=== PATIENT | male | born 1940 | race Caucasian/White ===

== ENCOUNTER 2020-07-31 08:50 | Outpatient (REF) | payer MEDICARE, SELFPAY | END 2020-07-31 08:51 | disposition home or self-care (01) | LOC: HO.BBR 08:50 | PROVIDERS: Visit Provider Internal Medicine | DX: Z13.89 Encounter for screening for other disorder (principal) ==

== ENCOUNTER 2020-07-31 09:20 | Outpatient (REF) | payer SELFPAY ==
[2020-07-31 10:02] LABS: Cholesterol 101 mg/dL
[2020-07-31 12:07] LABS: SARS COV2 IgG Negative (Negative)
== END 2020-07-31 09:21 | disposition home or self-care (01) ==
LOC: HO.LNC 09:20
PROVIDERS: Visit Provider Pathology Anatomic Pathology & Clinical Pathology
DX: Z20.828 Contact with and (suspected) exposure to other viral communicable diseases (principal)
CPT/HCPCS: 82465; 86769

== ENCOUNTER 2020-11-14 09:52 | Outpatient (REF) | payer MEDICARE, SELFPAY | END 2020-11-14 09:53 | disposition home or self-care (01) | LOC: HO.BBR 09:52 | PROVIDERS: Visit Provider Internal Medicine | DX: Z13.89 Encounter for screening for other disorder (principal) ==

== ENCOUNTER → 2020-12-11 08:02 | Outpatient (BNVA) | payer BC, SELFPAY | PROVIDERS: PCP Hospitalist; Visit Provider Nurse Practitioner Family ==

== ENCOUNTER → 2021-01-07 10:29 | Outpatient (BNVA) | payer BC, SELFPAY | PROVIDERS: PCP Hospitalist; Visit Provider Surgery Vascular Surgery ==

== ENCOUNTER 2021-01-16 10:21 | Outpatient (REF) | payer BC, SELFPAY ==
--- NOTE | ~2021-01-16 | US_ITS ---
EXAMINATION: RIGHT and LEFT LOWER EXTREMITY VENOUS ULTRASOUND (Reflux Exam) CLINICAL INDICATION: leg pain and varicose veins. COMPARISON: None. TECHNIQUE: Color flow triplex imaging and compression Doppler was performed to evaluate both the deep and the superficial systems bilaterally. To evaluate the superficial system, the examination was performed in the upright position. Color-flow Doppler ultrasound and compression ultrasound were utilized. In addition, maneuvers were utilized to demonstrate reflux. FINDINGS: 1. DEEP VENOUS ULTRASOUND OF THE RIGHT LOWER EXTREMITY: Respiratory variation, normal compression and augmented flow are noted in the right common femoral vein as well as the right popliteal vein and there is no evidence of deep venous thrombosis at these locations. There is no evidence of reflux in the deep system in either the common femoral vein or the popliteal vein. There is no evidence of a Mckeon's cyst. 2. SUPERFICIAL ULTRASOUND WITH DOPPLER OF RIGHT LOWER EXTREMITY: The right great saphenous vein at the saphenofemoral junction measures 7 mm, at the mid thigh 3 mm, vqqks-gpf-alzn 3 mm, kzrur-naf-zhqo 2 mm, at mid calf 3 mm and at the ankle measures 2 mm. There is a 2.8 seconds reflux at the knee and 2.1 seconds reflux below the knee. There is an accessory lateral greater saphenous vein that measures 3 mm and does not demonstrate reflux. The right small saphenous vein measures 2-3 mm and shows no reflux. There is a autobody technician in the mid thigh that measures 1 mm and does not demonstrate reflux. 3. DEEP VENOUS ULTRASOUND OF THE LEFT LOWER EXTREMITY: Respiratory variation, normal compression and augmented flow are noted in the left common femoral vein as well as the left popliteal vein and there is no evidence of deep venous thrombosis at these locations. There is a 1.6 seconds deep venous reflux in the mid femoral vein. There is no evidence of reflux in the deep system in either the common femoral vein or the popliteal vein. . There is no evidence of a Mckeon's cyst. 4. SUPERFICIAL ULTRASOUND WITH DOPPLER OF LEFT LOWER EXTREMITY: Left great saphenous vein at the saphenofemoral junction measures 8 mm, at the mid thigh 5 mm, vcdyv-wwm-zkfs 5 mm, halhc-kje-hyjf 4 mm, at mid calf 2 mm and at the ankle measures 3 mm. There is is diffuse greater saphenous vein reflux measuring maximum 3.4 seconds in the mid calf. There is a accessory left greater saphenous vein that measures 5 mm and does not demonstrate reflux. The left small saphenous vein measures 3-4 mm and shows no reflux. There are perforators in the calf that measure 2 and 4 mm. There is reflux measuring 2.6 seconds in the larger autobody technician. There are varicosities at the saphenofemoral junction with a 0.6 seconds reflux, proximal thigh and proximal calf with 3.1 seconds reflux. US/US venous duplex LE BI IMPRESSION: 1. No evidence of reflux in the common femoral veins or popliteal veins bilaterally. Left mid femoral vein deep venous reflux. No other deep venous reflux seen. 2. Bilateral greater saphenous vein reflux, left greater than right.
== END 2021-01-16 10:22 | disposition home or self-care (01) ==
LOC: HO.US 10:21
PROVIDERS: Visit Provider Surgery Vascular Surgery
DX: I83.12 Varicose veins of left lower extremity with inflammation (principal); I83.893 Varicose veins of bilateral lower extremities with other complications
CPT/HCPCS: 93970

== ENCOUNTER → 2021-01-23 10:06 | Outpatient (BNVA) | payer BC, SELFPAY | PROVIDERS: PCP Hospitalist; Visit Provider Surgery Vascular Surgery ==

== ENCOUNTER 2021-01-28 06:19 | Outpatient (REF) | payer BC, SELFPAY ==
--- NOTE | ~2021-01-28 | FL_ITS ---
EXAMINATION: XR FLUOROSCOPY WITH IMAGES CLINICAL INFORMATION: M47.816 - Spondylosis without myelopathy or radiculopathy COMPARISON: None. TECHNIQUE: Fluoroscopy performed by Marichuy Masterson NP. Fluoroscopy time: 1.0 minutes DAP: 12.3 Gycm2 Images: 2 FINDINGS: There are needles/electrodes overlying the outer aspect bilateral L3, L4, and L5 neural foramen. There are multilevel vertebral body spurring. FL/FL guidance in treatment room IMPRESSION: Fluoroscopy for pain management procedure.
== END 2021-01-28 06:20 | disposition home or self-care (01) ==
LOC: HO.RADIR 06:19
PROVIDERS: Visit Provider Anesthesiology
DX: M47.816 Spondylosis without myelopathy or radiculopathy, lumbar region (principal)
CPT/HCPCS: 64635; J3300

== ENCOUNTER → 2021-02-14 08:26 | Outpatient (BNVA) | payer BC, SELFPAY | PROVIDERS: PCP Hospitalist; Visit Provider Surgery Vascular Surgery | DX: I83.12 Varicose veins of left lower extremity with inflammation (principal) | CPT/HCPCS: 36482 ==

== ENCOUNTER 2021-02-17 08:48 | Outpatient (REF) | payer MEDICARE, SELFPAY ==
--- NOTE | ~2021-02-17 | US_ITS ---
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 Spectral analysis with color-flow imaging is performed. FINDINGS: There is normal venous compression and respiratory variation and augmented flow. The visualized common femoral vein, superficial femoral vein, profunda femoral vein, popliteal vein, and the trifurcation region shows no evidence of deep venous thrombosis. The left greater saphenous vein is closed. This extends 2.6 cm from the saphenofemoral junction. There is no Mckeon's cyst. US/US venous duplex LE LT IMPRESSION: No DVT demonstrated in the left lower extremity.
== END 2021-02-17 08:49 | disposition home or self-care (01) ==
LOC: HO.US 08:48
PROVIDERS: Visit Provider Surgery Vascular Surgery
DX: M79.605 Pain in left leg (principal)
CPT/HCPCS: 93971

== ENCOUNTER 2021-02-18 10:50 | Outpatient (REF) | payer BC, SELFPAY | END 2021-02-18 10:51 | disposition home or self-care (01) | LOC: HO.BBR 10:50 | PROVIDERS: Visit Provider Internal Medicine | DX: Z13.89 Encounter for screening for other disorder (principal) ==

== ENCOUNTER → 2021-03-04 12:16 | Outpatient (BNVA) | payer MEDICARE, SELFPAY | PROVIDERS: PCP Hospitalist; Visit Provider Surgery Vascular Surgery | DX: I83.12 Varicose veins of left lower extremity with inflammation (principal) | CPT/HCPCS: 99212 ==

== ENCOUNTER → 2021-03-05 08:36 | Outpatient (BNVA) | payer MEDICARE, SELFPAY | PROVIDERS: PCP Hospitalist; Visit Provider Nurse Practitioner Family | DX: M47.816 Spondylosis without myelopathy or radiculopathy, lumbar region (principal) | CPT/HCPCS: 99212 ==

== ENCOUNTER 2021-03-17 11:50 | Outpatient (REF) | payer MEDICARE, SELFPAY | END 2021-03-17 11:51 | disposition home or self-care (01) | LOC: HO.BBR 11:50 | PROVIDERS: PCP Hospitalist; Visit Provider Internal Medicine | DX: Z13.89 Encounter for screening for other disorder (principal) ==

== ENCOUNTER 2021-06-10 06:23 | Outpatient (REF) | payer MEDICARE, SELFPAY ==
--- NOTE | ~2021-06-10 | FL_ITS ---
EXAMINATION: XR FLUOROSCOPY WITH IMAGES CLINICAL INFORMATION: Sacrococcygeal disorder. COMPARISON: None. TECHNIQUE: Fluoroscopy performed by Marichuy Masterson NP. Fluoroscopy time: 0.1 minutes DAP: 0.5 Gy-cm2 Images: 1 FINDINGS: Image demonstrates needle placement and contrast injection over the right sacroiliac joint. FL/FL guidance in treatment room IMPRESSION: Fluoroscopy guidance for pain management procedure.
== END 2021-06-10 06:24 | disposition home or self-care (01) ==
LOC: HO.RADIR 06:23
PROVIDERS: Visit Provider Anesthesiology
DX: M53.3 Sacrococcygeal disorders, not elsewhere classified (principal); M47.816 Spondylosis without myelopathy or radiculopathy, lumbar region; M46.1 Sacroiliitis, not elsewhere classified
CPT/HCPCS: 27096; J3300; Q9967

== ENCOUNTER 2021-06-17 09:54 | Outpatient (REF) | payer MEDICARE, SELFPAY | END 2021-06-17 09:55 | disposition home or self-care (01) | LOC: HO.BBR 09:54 | PROVIDERS: Visit Provider Internal Medicine | DX: Z13.89 Encounter for screening for other disorder (principal) ==

== ENCOUNTER → 2021-06-18 10:06 | Outpatient (BNVA) | payer MEDICARE, SELFPAY | PROVIDERS: PCP Hospitalist; Visit Provider Anesthesiology | DX: M47.816 Spondylosis without myelopathy or radiculopathy, lumbar region (principal); M46.1 Sacroiliitis, not elsewhere classified; M53.3 Sacrococcygeal disorders, not elsewhere classified; Z88.8 Allergy status to other drugs, medicaments and biological substances | CPT/HCPCS: 99212 ==

== ENCOUNTER 2021-07-22 06:37 | Outpatient (REF) | payer MEDICARE, SELFPAY ==
--- NOTE | ~2021-07-22 | FL_ITS ---
EXAMINATION: XR FLUOROSCOPY WITH IMAGES CLINICAL INFORMATION: M46.1 - Sacroiliitis, not elsewhere classified COMPARISON: Fluoroscopic spot view 06/10/2021 TECHNIQUE: Fluoroscopy performed by Dr. Warren Vazquez. Fluoroscopy time: 0.7 minutes DAP: 7.62 Gycm2 Images: 4 FINDINGS: There are 4 needle electrodes overlying the right sacral wing placed at various locations among the spot views. There are degenerative disc changes lumbosacral junction. FL/FL guidance in treatment room IMPRESSION: Fluoroscopy for pain management procedure.
== END 2021-07-22 06:38 | disposition home or self-care (01) ==
LOC: HO.RADIR 06:37
PROVIDERS: Visit Provider Anesthesiology
DX: M47.816 Spondylosis without myelopathy or radiculopathy, lumbar region (principal); M46.1 Sacroiliitis, not elsewhere classified; M53.3 Sacrococcygeal disorders, not elsewhere classified
CPT/HCPCS: 64425; J3300

== ENCOUNTER → 2021-08-25 09:37 | Outpatient (BNVA) | payer MEDICARE, SELFPAY | PROVIDERS: PCP Hospitalist; Visit Provider Anesthesiology | DX: M47.816 Spondylosis without myelopathy or radiculopathy, lumbar region (principal); M53.3 Sacrococcygeal disorders, not elsewhere classified; M46.1 Sacroiliitis, not elsewhere classified | CPT/HCPCS: 99212 ==

== ENCOUNTER 2021-11-06 10:05 | Outpatient (REF) | payer MEDICARE, SELFPAY | END 2021-11-06 10:06 | disposition home or self-care (01) | LOC: HO.BBR 10:05 | PROVIDERS: Visit Provider Internal Medicine | DX: Z13.89 Encounter for screening for other disorder (principal) ==

== ENCOUNTER 2022-02-13 09:46 | Outpatient (REF) | payer MEDICARE, SELFPAY | END 2022-02-13 09:47 | disposition home or self-care (01) | LOC: HO.BBR 09:46 | PROVIDERS: Visit Provider Internal Medicine | DX: Z13.89 Encounter for screening for other disorder (principal) ==

== ENCOUNTER → 2022-03-18 14:11 | Outpatient (BNVA) | payer MEDICARE, SELFPAY | PROVIDERS: PCP Hospitalist; Visit Provider Anesthesiology | DX: M47.816 Spondylosis without myelopathy or radiculopathy, lumbar region (principal); M53.3 Sacrococcygeal disorders, not elsewhere classified; M46.1 Sacroiliitis, not elsewhere classified | CPT/HCPCS: Q3014 ==

== ENCOUNTER 2022-05-18 10:04 | Outpatient (REF) | payer MEDICARE, SELFPAY | END 2022-05-18 10:05 | disposition home or self-care (01) | LOC: HO.BBR 10:04 | PROVIDERS: Visit Provider Internal Medicine | DX: Z13.89 Encounter for screening for other disorder (principal) ==

== ENCOUNTER 2022-05-26 06:26 | Day surgery (SDC) | payer MEDICARE, SELFPAY ==
--- NOTE | ~2022-05-26 | FL_ITS ---
EXAMINATION: XR FLUOROSCOPY WITH IMAGES CLINICAL INFORMATION: Medial branch RFA right lumbar. COMPARISON: Fluoroscopic spot images 07/22/2021 TECHNIQUE: Fluoroscopy performed by Dr. Warren Vazquez. Fluoroscopy time: 0.6 minutes. Cumulative Dose: 23 mGy. DAP: 6.27 Gy-cm2. Images: 3. FINDINGS: There are needles/electrodes overlying the outer right L2, L3, L4, and L5 neural foramen. There is multilevel vertebral body spurring. FL/FL guidance in OR IMPRESSION: Fluoroscopy for pain management procedures.
[2022-05-26 06:55] VITALS: BMI 28.5
[2022-05-26 07:10] VITALS: BP 162/61; PULSE 52; RESP 16; TEMP 36.4; O2SAT 96
--- NOTE | 2022-05-26 07:15 | MHC.SHP ---
Pre-Procedural Eval Section A Date of Service: 05/26/22 The patient is an INPATIENT: No Changes since office visit: Yes Patient answered all questions The History & Physical has been completed within 30 days and I have reviewed it.: No Section B Chief Complaint: spondylosis Details of Present Illness: as above Relevant Family History (Specify if Yes): No Relevant Social History: None Present Medications: None Medical History: No relevant PMH History of Previous Operations: No relevant previous surgery Allergies: Allergies Allergy/AdvReac Type Severity Reaction Status Date / Time Phenylpiperazine AdvReac Severe causes Verified 08/25/21 09:48 Antidepressant depression Tetracyclic Antidepressants AdvReac Severe causes Verified 08/25/21 09:48 depression Review of Systems Sugical H&P ROS: Negative: Constitution, Cardiovascular, Respiratory, Neurological, Psychiatric, Hem-Onc, Allergic/Immunologic, Gastrointestinal, Genitourinary, Musculoskeletal, Integumentary, Endocrine and Eyes/Ears/Nose/Throat Exam Surgical H&P Exam: Normal: HEENT, Normal: Heart, Normal: Lungs, Normal: Extremities, Normal: Abdomen, Normal: Skin and Normal: Neurological Plan Diagnosis/Plan: Unchanged I have reviewed the history and physical and performed a pertinent physical examination on my patient. No changes have occurred unless specified.
--- NOTE | 2022-05-26 07:17 | W.PM.OPN ---
Operative Note Operative Note Date of Service: 05/26/22 Narrative: Right sided RFA L2- L3- L4-DRL5 Informed consent was explained to the patient. All questions were explained and answered.? The patient was taken inside of the operating room where he was positioned prone on the operating table.? Time-out was performed delineating patient's name and date of , correct site, side, the nature of the procedure, patient's allergy, preoperative antibiotic if needed.? All operating room staff was participating in OR time-out procedure.? The patient lower back was prepped with ChloraPrep and draped with sterile towels.? Sterilely draped C-arm was brought over the operating field and sq picture of L3-L4-5 vertebra as and S1 area were delineated on the screen.? Points of interest were delineated as connection of superior articular process of L3, L4 and L5 vertebra on the right with corresponding transverse processes as well as connection of the sacral alae bilaterally with superior articular process of S1.? The projection of the point of interest to the skin were injected with the small amount of local anesthetic lidocaine 2% 1-1.5 cc.? After that 18 gauge 100 mm radiofrequency cannulas were driven to the points of interest in tunnel vision fashion under intermittent AP and oblique views. After needles gently contacted the bone at the point of interests the stylets were removed from the needles and nitinol electrodes were inserted into the needles.? Electrodes were connected to the radiofrequency machine and testing was performed for the patient's sensory and motor function.? There were no pathological motor response indicating stimulation of somatic nerves.? After that electrodes were removed and each needle was injected with small amount of mixture of lidocaine 2% and ropivacaine 0.5% 1-1.5 cc mixed with trace amount of Kenalog.? Upon completion of the injections the electrodes were reinserted and energy of 80 degree centigrade for 90 seconds was applied to each cannula.? Upon completion of the energy application the cannulas were rotated 180? and energy applied with the same temperature and with the same time.? Upon completion of the injections needles were removed and sterile dressings were applied, patient was taken outside of the operating room to recovery room where he recovered uneventfully.? He went home without immediate complications.
[2022-05-26 08:15] VITALS: BP 147/71; PULSE 49; RESP 18; TEMP 36.3; O2SAT 97
--- NOTE | 2022-05-26 08:22 | PM.OP ---
Brief Operative Note Date of Service: 05/26/22 Pre-op diagnosis: spondylosis lumbr spine Post-op diagnosis: same Procedure: RFA L2-L3- L4- DRL5 MBBs on the right Implants: none Surgeon: Warren Vazquez MD Anesthesia: local Was an Clinical Rehabilitation Specialist used for this Procedure?: No Estimated blood loss (mL): 0 Condition: stable Disposition: PACU
== END 2022-05-26 08:30 | disposition home or self-care (01) ==
PROVIDERS: PCP Hospitalist; Visit Provider Anesthesiology
PROC: (CPT 64635; principal; 2022-05-26 07:30)
DX: M47.816 Spondylosis without myelopathy or radiculopathy, lumbar region (principal); M53.3 Sacrococcygeal disorders, not elsewhere classified; M46.1 Sacroiliitis, not elsewhere classified; Z88.8 Allergy status to other drugs, medicaments and biological substances
CPT/HCPCS: 64635; 64636; J2795; J3300; Q9965

== ENCOUNTER → 2022-06-29 10:52 | Outpatient (BNVA) | payer MEDICARE, SELFPAY | PROVIDERS: PCP Hospitalist; Visit Provider Anesthesiology | DX: M47.816 Spondylosis without myelopathy or radiculopathy, lumbar region (principal); M53.3 Sacrococcygeal disorders, not elsewhere classified; M46.1 Sacroiliitis, not elsewhere classified | CPT/HCPCS: 99212 ==

== ENCOUNTER 2022-11-10 09:51 | Outpatient (REF) | payer MEDICARE, SELFPAY | END 2022-11-10 09:52 | disposition home or self-care (01) | LOC: HO.BBR 09:51 | PROVIDERS: Visit Provider Internal Medicine | DX: Z13.89 Encounter for screening for other disorder (principal) ==

== ENCOUNTER 2023-02-10 11:04 | Outpatient (REF) | payer MEDICARE, SELFPAY | END 2023-02-10 11:05 | disposition home or self-care (01) | LOC: HO.BBR 11:04 | PROVIDERS: PCP Hospitalist; Visit Provider Internal Medicine | DX: Z13.89 Encounter for screening for other disorder (principal) ==

== ENCOUNTER 2023-05-12 10:59 | Outpatient (REF) | payer MEDICARE, SELFPAY | END 2023-05-12 11:00 | disposition home or self-care (01) | LOC: HO.BBR 10:59 | PROVIDERS: Visit Provider Internal Medicine | DX: Z13.89 Encounter for screening for other disorder (principal) ==

== ENCOUNTER 2023-08-11 11:37 | Outpatient (REF) | payer MEDICARE, SELFPAY | END 2023-08-11 11:38 | disposition home or self-care (01) | LOC: HO.BBR 11:37 | PROVIDERS: Visit Provider Internal Medicine | DX: Z13.89 Encounter for screening for other disorder (principal) ==

== ENCOUNTER 2023-11-17 11:51 | Outpatient (REF) | payer MEDICARE, SELFPAY | END 2023-11-17 11:52 | disposition home or self-care (01) | LOC: HO.BBR 11:51 | PROVIDERS: PCP Hospitalist; Visit Provider Internal Medicine | DX: Z13.89 Encounter for screening for other disorder (principal) ==

== ENCOUNTER 2024-02-17 09:55 | Outpatient (REF) | payer MEDICARE, SELFPAY | END 2024-02-17 09:56 | disposition home or self-care (01) | LOC: HO.BBR 09:55 | PROVIDERS: PCP Hospitalist; Visit Provider Internal Medicine | DX: Z13.89 Encounter for screening for other disorder (principal) ==

== ENCOUNTER 2024-05-30 10:03 | Outpatient (REF) | payer MEDICARE, SELFPAY | END 2024-05-30 10:04 | disposition home or self-care (01) | LOC: HO.BBR 10:03 | PROVIDERS: PCP Hospitalist; Visit Provider Internal Medicine | DX: Z13.89 Encounter for screening for other disorder (principal) ==

== ENCOUNTER 2024-07-27 12:56 | Outpatient (AMB) | payer MEDICARE, SELFPAY ==
--- NOTE | 2024-07-27 13:03 | MHC.OFFVIS ---
Vital Signs 07/27/24 13:07 Height 5 ft 10 in Weight 202 lb BMI 29.0 BP 130/70 Blood Pressure Location Lt brachial Position Sitting Respiration 16 Pulse 50 Pulse Oximetry (%) 95 Oxygen Delivery Method Room Air Intake Visit Reasons: Back pain Intake Note: Patient comes in for follow up on back pain. Reports pain 5/10. Allergies Phenylpiperazine Antidepressant Adverse Reaction (Severe, Verified 07/27/24 13:09) causes depression Tetracyclic Antidepressants Adverse Reaction (Severe, Verified 07/27/24 13:09) causes depression HPI Comments Details: Ehsan is a back in my office after almost 2 years of absence with complains on pain in lower back across the lower lumbar spine with radiation mostly to the left hip. In the right hip he reports minimal radiation mostly axial back pain. In the past he received radiofrequency ablation L2-L3- L4 dorsal ramus L5 on the right device. He reported both times 100% pain improvement after the RFA for the 1st 6 months after the procedure. After those 6 months the pain started to come back however it was not as intense as it was before. Now he reports pain mostly bothering him on the left. I would need to perform bilateral medial branch block L3-L4 does ramus L5 to prepare him for new radiofrequency ablation versus possibly sprint PNS procedure. PFSH Medical History (System 11/09/22 @ 15:33 by Shyann Ramirez) Sacroiliitis Surgical History (System 11/09/22 @ 15:33 by Shyann Ramirez) Hx of vein stripping (06/29/14) Review of Systems Const All systems reviewed & are unremarkable except as noted in HPI and below ENT Reports Normal hearing present Neuro Reports Normal hearing present, Denies Abnormal speech present and Denies confusion Psych Denies confusion Physical Exam Vital Signs: Last Vital Signs Pulse 50 07/27/24 13:07 Resp 16 07/27/24 13:07 BP 130/70 07/27/24 13:07 Pulse Ox 95 07/27/24 13:07 Oxygen Delivery Method Room Air 07/27/24 13:07 BMI result Body Mass Index 29.0 Const General: No confusion Nutritional Appearance: overweight Orientation/consciousness: No confusion Limitations: no limitations HEENT Head: Yes normocephalic and Yes atraumatic Ears: hearing grossly normal bilaterally Eyes General: appearance normal, both eyes and all related structures Eyelids: Yes eyelids normal Pupils: Equal, round and reactive pupils present EOM: EOMs intact bilaterally Neck Neck: Yes normal visual inspection and Yes no JVD Resp Effort & Inspection: normal respiratory effort, able to speak in complete sentences and no audible wheezes Cardio Jugular venous distension: no JVD Back/Spine/Pelvis Other: Mild TTP of right SIJ. Pelvic compression test positive on right, negative on left. Stinchfield test negative. Tyler test positive on right. More discomfort with lumbar extension. Neuro General: No confusion Cranial nerves: Yes Equal, round and reactive pupils present and Yes Normal hearing present Speech: No Abnormal speech present Psych Appearance: grossly normal Mental Status: mental status grossly normal Speech and movement: Normal speech and movement present Affect: normal affect Attitude: cooperative Thought process: Normal thought process present Thought content: Normal thought content present Insight: Good insight present (Psych) Judgement: Good judgement present (Psych) Assessment & Plan Assessment & Plan (1) Lumbar facet arthropathy: Code(s): M47.816 - Spondylosis without myelopathy or radiculopathy, lumbar region Category: Medical (2) Sacroiliac joint pain: Code(s): M53.3 - Sacrococcygeal disorders, not elsewhere classified Category: Medical (3) Sacroiliitis: Code(s): M46.1 - Sacroiliitis, not elsewhere classified Category: Medical Plan: Good results in the past of the 2 radiofrequency ablation procedures L2-L3 L4 dorsal ramus L5 on the right. I will schedule him for the medial branch block bilateral L3-L4 dorsal ramus L5 to diagnose his pain at this time again. After that we will discuss radiofrequency ablation versus sprint PNS to treat his pain. Plan Plan of care as above Coding Level of Care Code Est Pt Level 3 (37537) Diagnoses Lumbar facet arthropathy M47.816 Sacroiliac joint pain M53.3 Sacroiliitis M46.1
[2024-07-27 13:07] VITALS: BP 130/70; PULSE 50; RESP 16; O2SAT 95; BMI 29.0
== END 2024-07-27 13:13 | disposition home or self-care (01) ==
PROVIDERS: PCP Hospitalist; Visit Provider Anesthesiology
DX: M47.816 Spondylosis without myelopathy or radiculopathy, lumbar region (principal); M53.3 Sacrococcygeal disorders, not elsewhere classified; M46.1 Sacroiliitis, not elsewhere classified
CPT/HCPCS: 99213

== ENCOUNTER → 2024-07-27 12:56 | Outpatient (BNVA) | payer MEDICARE, SELFPAY | PROVIDERS: PCP Hospitalist; Visit Provider Anesthesiology | DX: M47.816 Spondylosis without myelopathy or radiculopathy, lumbar region (principal); M53.3 Sacrococcygeal disorders, not elsewhere classified; M46.1 Sacroiliitis, not elsewhere classified | CPT/HCPCS: 99212 ==

== ENCOUNTER 2024-09-01 10:54 | Outpatient (REF) | payer MEDICARE, SELFPAY ==
--- OUTSIDE RECORDS SUMMARY | 2024-09-01 10:57 | XMS_ITS ---
Author Organization [facility] Address [address] [place] [address] Care Team Providers Care Printing Bindery Assistant Name Role Phone DEANDREBRITTANYMONTERROSO Primary Care Provider Results Component Value Reference Range Notes Iron-[id number] Reviewed date:08/25/2024 08:24:54 AM Interpretation: Performing Lab:[facility], [address] [place] [address], Phone - [phone], Director - Soly Notes/Report: Iron 205 38-169 ug/dL Ferritin-[id number] Reviewed date:08/25/2024 08:24:52 AM Interpretation: Performing Lab:[facility], [address] [facility], [place], Phone - [phone], Director - MDJodry Notes/Report: Ferritin 343 30-400 ng/mL CBC With Differential/Platel et-[id number] Reviewed date:08/25/2024 08:24:43 AM Interpretation: Performing Lab:[facility], [address] [facility], [place], Phone - [phone], Director - MDJodry Notes/Report: WBC 5.3 3.4-10.8 x10E3/uL RBC 4.58 4.14-5.80 x10E6/uL Hemoglobin 15.5 13.0-17.7 g/dL Hematocrit 45.6 37.5-51.0 % MCV 100 79-97 fL MCH 33.8 26.6-33.0 pg MCHC 34.0 31.5-35.7 g/dL RDW 12.2 11.6-15.4 % Platelets 159 150-450 x10E3/uL Neutrophils 53 Not Estab. % Lymphs 30 Not Estab. % Monocytes 12 Not Estab. % Eos 4 Not Estab. % Basos 1 Not Estab. % Neutrophils (Absolute) 2.8 1.4-7.0 x10E3/uL Lymphs (Absolute) 1.6 0.7-3.1 x10E3/uL Monocytes(Absolute) 0.7 0.1-0.9 x10E3/uL Eos (Absolute) 0.2 0.0-0.4 x10E3/uL Baso (Absolute) 0.1 0.0-0.2 x10E3/uL Immature Granulocytes 0 Not Estab. % Immature Grans (Abs) 0.0 0.0-0.1 x10E3/uL Lipid Panel-[id number] Reviewed date:08/25/2024 08:24:48 AM Interpretation: Performing Lab:[facility], [address] [facility], Phone - [phone], Director - MDJodry Notes/Report: Cholesterol, Total 137 100-199 mg/dL Triglycerides 209 0-149 mg/dL HDL Cholesterol 35 >39 mg/dL VLDL Cholesterol Logan 35 5-40 mg/dL LDL Chol Calc (NIH) 67 0-99 mg/dL Comp. Metabolic Panel ([id number] Reviewed date:08/25/2024 08:24:45 AM Interpretation: Performing Lab:[facility], [address] [facility], [place], Phone - [phone], Director - MDJodry Notes/Report: Glucose 99 70-99 mg/dL BUN 22 8-27 mg/dL Creatinine 1.00 0.76-1.27 mg/dL eGFR 75 >59 mL/min/1.73 BUN/Creatinine Ratio 22 10-24 Sodium 141 134-144 mmol/L Potassium 5.0 3.5-5.2 mmol/L Chloride 104 96-106 mmol/L Carbon Dioxide, Total 23 20-29 mmol/L Calcium 9.2 8.6-10.2 mg/dL Protein, Total 6.4 6.0-8.5 g/dL Albumin 4.4 3.7-4.7 g/dL Globulin, Total 2.0 1.5-4.5 g/dL Bilirubin, Total 0.8 0.0-1.2 mg/dL Alkaline Phosphatase 73 44-121 IU/L AST (SGOT) 29 0-40 IU/L ALT (SGPT) 27 0-44 IU/L REASON FOR VISIT labwork follow up Encounters Encounter Location Date Provider Diagnosis [facility] [address] [place] [address] 08/21/2024 KRISS CARRERA Essential (primary) hypertension I10 ; Mixed hyperlipidemia E78.2 and Iron deficiency E61.1 Assessments Encounter Date Diagnosis (ICD Code) Assessment Notes Treatment Notes Treatment Clinical Notes Section Notes 08/21/2024 Essential (primary) hypertension (ICD-10 - I10) 08/21/2024 Mixed hyperlipidemia (ICD-10 - E78.2) 08/21/2024 Iron deficiency (ICD-10 - E61.1) Plan Of Treatment Pending Test Test Name Order Date Albumin/Creatinine Ratio,Urine-[id number] Next Appt Details Provider Name:KRISS CARRERA , 11/14/2024 10:45:00 AM, [address] [place] [address] [address], [place], [address], Progress Notes * Ehsan PACHECODOB:1940 ( 84 yo M)Acc No.[id number]:08/21/2024 Patient:?Ehsan PACHECO :1940???Age:84 Y???Sex:Male Address:[address] [place] [address] [place] [address] Subjective: * Chief Complaints: * ???Labwork follow up * Medical History:? * Surgical History:? * Hospitalization/Major Diagno stic Procedure:? * Medications:? Objective: * Vitals:? * Physical Examination:? Assessment: * Assessment: 1.?Essential (primary) hyper tension - I10???2.?Mixed hyperlipidemia - E78.2???3.?Iron deficiency - E61.1??? Plan: * Treatment: 2.?Mixed hyperlipidemia?LAB: Iron-[id number] ?LAB: Ferritin-[id number] ?LAB: CBC With Differential/Platelet-[id number] ?LAB: Albumin/Creatinine Ratio,Urine-[id number] ?LAB: Lipid Panel-[id number] ?LAB: Comp. Metabolic Panel ([id number] 3.?Iron deficiency?LAB: Iron-[id number] ?LAB: Ferritin-[id number] ?LAB: CBC With Differential/Platelet-[id number] ?LAB: Albumin/Creatinine Ratio,Urine-[id number] ?LAB: Lipid Panel-[id number] ?LAB: Comp. Metabolic Panel [id number] * Procedure Codes:? * true * Date:? Generated for Blanka olivo/Surya/eTransmitting on:?09/01/2024 10:56 AM EST
--- OUTSIDE RECORDS SUMMARY | 2024-09-01 10:57 | XMS_ITS | Patient Health Record ---
Author Organization [facility] Formerly [facility] Address [address] [place] [address] Care Team Providers Care Principal Statistical Scientist Name Role Phone DEANDRE MONTERROSO Primary Care Provider Cory Almanza Unavailable [phone] Allergies Allergen (clinical drug ingredient) Drug/Non Drug Allergy documented on EMR Reaction Allergy Type Onset Date Status escitalopram Lexapro Unknown Drug Allergy Acti ve paroxetine Paxil Unknown Drug Allergy Active sertraline Zoloft Unknown Drug Allergy Active Results Component Value Reference Range Notes Iron-[id number] Reviewed date:08/25/2024 08:24:54 AM Interpretation: Performing Lab:[facility], [facility], Phone - [phone], Director - Casa Notes/Report: Iron 205 38-169 ug/dL Ferritin-[id number] Reviewed date:08/25/2024 08:24:52 AM Interpretation: Performing Lab:[facility], [facility] [place], Phone - [phone], Director - MDJodry Notes/Report: Ferritin 343 30-400 ng/mL CBC With Differential/Platel et-[id number] Reviewed date:08/25/2024 08:24:43 AM Interpretation: Performing Lab:[facility], [facility] [place], Phone - [phone], Director - MDJodry Notes/Report: WBC 5.3 3.4-10.8 [...] Immature Grans (Abs) 0.0 0.0-0.1 x10E3/uL Lipid Panel-[id number] Reviewed date:08/25/2024 08:24:48 AM Interpretation: Performing Lab:[facility], [address] [facility], Phone - [phone], Director - MDJodry Notes/Report: Cholesterol, Total 137 100-199 mg/dL Triglycerides 209 0-149 mg/dL HDL Cholesterol 35 >39 mg/dL VLDL Cholesterol Logan 35 5-40 mg/dL LDL Chol Calc ([facility]) 67 0-99 mg/dL Comp. Metabolic Panel (14)-3 [id number] Reviewed date:08/25/2024 08:24:45 AM Interpretation: Performing Lab:[facility], [address] [facility], Phone - [phone], Director - MDJodry Notes/Report: Glucose 99 70-99 [...] 0-40 IU/L ALT (SGPT) 27 0-44 IU/L TOTAL IRON BINDING CAPACITY Reviewed date:01/20/2024 05:29:05 PM Interpretation: Performing Lab: Notes/Report: TOTAL IRON BINDING CAPACITY 192 250-450 ug/dL IRON (FE) 196 50-160 ug/dL % FE SATURATION 102 20-50 % FERRITIN Reviewed date:01/20/2024 05:29:03 PM Interpretation: Performing Lab: Notes/Report: [employer] [address] Utility Clerk - Nila Rodríguez MD FERRITIN 250 26-388 ng/mL COMPREHENSIVE METABOLIC PANE L Reviewed date:01/20/2024 05:29:08 PM Interpretation: Performing Lab: Notes/Report: Original Ordering Provider: IGOR REDDY MD GLUCOSE 122 70-100 mg/dL Reference range applicable to fasting specimens only BUN 21 5-25 mg/dL CREAT 0.99 0.7-1.3 mg/dL GLOMERULAR FILTRATION RATE 77 >60 This eGFR result was calculated using the CKD-EPI 2020 Creatinine Equation SODIUM 142 135-145 mEq/L POTASSIUM 4.9 3.5-5.5 mmol/L CHLORIDE 107 96-110 mmol/L CO2 30 21-32 mmol/L ANION GAP 5 3-11 CALCIUM 8.9 8.5-10.5 mg/dL TOTAL PROTEIN 6.6 6.0-8.0 G/dL ALBUMIN 3.7 3.2-5.0 G/dL BILI,TOTAL 0.8 0.0-1.4 mg/dL SGOT 21 10-42 U/L SGPT 35 10-60 U/L ALK PHOS 75 42-121 U/L CBC WITH AUTO DIFF Reviewed date:01/20/2024 05:29:11 PM Interpretation: Performing Lab: Notes/Report: Original Ordering Provider: IGOR REDDY MD [employer], [place] [address] Utility Clerk - Nila Rodríguez MD WBC 6.9 4.8-10.8 x10-3/uL RBC 4.3 4.5-5.5 x10-6/uL HEMOGLOBIN 14.4 13.5-17.5 g/dL HEMATOCRIT 42.4 42-54 % MCV 99.1 79-98 fL MCH 33.6 27-32 pg MCHC 34.0 32-37 g/dL RDW 13.1 11-15 % PLT COUNT 182 130-400 x10-3/uL MEAN PLATELET VOLUME 10.1 7-11 fL NRBC % AUTO 0.0 <1 % NEUT % 63.4 LYMPH % 22.2 MONO % 11.4 EOS % 2.2 BASO % 0.4 IMMATURE GRANULOCYTES % 0.4 NRBC # AUTO 0.00 <0.1 x10-3/uL ABSOLUTE NEUT 4.39 1.5-7.0 x10-3/uL LYMPH # 1.54 1-5.0 x10-3/uL MONO # 0.79 0.2-1.0 x10-3/uL EOS # 0.15 0-0.5 x10-3/uL BASO # 0.03 0-0.2 x10-3/uL IMMATURE GRANULOCYTES # 0.03 0-0.03 x10-3/uL Reason For Referral No Information Medications Medication SIG (Take, Route, Frequency, Duration) Notes Start Date End Date Status Lisinopril 10 MG TAKE 1 TABLET BY SANDRA TH EVERY DAY FOR 90 DAYS Orally Once a day for 90 days Active Atorvastatin Calcium 40 MG TAKE 1 TABLET BY MOUTH EVERY DAY FOR 90 DAYS for 90 Active diazePAM 5 MG TAKE 1 TABLET BY SANDRA TH EVERY DAY for 30 07/19/2024 Active Metoprolol Tartrate 25 MG TAKE 1/2 TABLE T TWICE A DAY WITH FOOD for 90 days Active Probiotic - as directed Orally o nce a day Active Nitroglycerin 0.4 MG as directed Subling ual as needed for chest pain for 90 days Active Fish Oil 1000 MG 1 capsule Orally Onc e a day for 30 day(s) Active Aspirin Adult Low Strength 81 MG 1 tablet Orally Once a day for 30 day(s) Active Gabapentin 100 MG 1 capsule Orally Onc e a day Active Immunizations Vaccine Route Administration Date Status Comme nts COVID Unknown 10/20/2020 Administered COVID 19 Pfizer Unknown 10/08/2020 Administered COVID 19 Pfizer Unknown 06/11/2021 Administered COVID Pfizer Unknown 12/26/2021 Administered COVID-19 Pfizer Unknown 07/16/2022 Administered Flu Unknown 07/03/2022 Administered Flu Unknown 07/23/2023 Administered Influenza, high dose seasonal IM Intramuscular 06/12/2019 Administered Pneumococcal conjugate PCV 13 Unknown 05/10/2015 Administered Shingrix Unknown 06/03/2020 Administered Zoster Unknown 07/16/2012 Administered Social History Tobacco Use: Social History Observation Description Date Details (start date - stop date) Former Smoker NA - NA Tobacco Use/Smoking Question Answer Notes Are you a former smoker How long has it been since you last smoked? > 10 years Alcohol Screen (Audit-C) Question Answer Notes Did you have a drink containing alcohol in the p ast year? No Points 0 Interpretation Negative Problems Problem Type SNOMED Code ICD Code Onset Dates Problem Status W/U Status Risk Notes Problem Mixed hyperlipidemia (642168827) Mixed hyperlipidemia (E78.2) Active confirmed Problem Hemochromatosis (687837849) Hemochromatosis, unspecified (E83.119) Active confirmed Problem Generalized anxiety disorder (82744517) Generalized anxiety disorder (F41.1) Active confirmed Problem Cataract (disorder) (540476292) Cataract in diseases classified elsewhere (H28) Active confirmed Problem Hearing loss (18437859) Unspecified hearing loss, unspecified ear (H91.90) Active confirmed Problem 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 (683168251) 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) Active confirmed Problem Pain co-occurrent and due to varicose veins of bilateral legs (39965767934295961) Varicose veins of bilateral lower extremities with pain (I83.813) Active confirmed Problem Gastro-esophageal reflux disease without esophagitis (501282476) Gastro-esophageal reflux disease without esophagitis (K21.9) Active confirmed Problem Lumbosacral radiculopathy (4523781) Radiculopathy, lumbosacral region (M54.17) Active confirmed Problem Solitary pulmonary nodule (405512982) Solitary pulmonary nodule (R91.1) Active confirmed Problem Adult health examination (960674010) Encounter for general adult medical examination without abnormal findings (Z00.00) Active confirmed Problem History of cataract extraction (017892813) Cataract extraction status, right eye (Z98.41) Active confirmed Problem Essential hypertension (58217586) Essential (primary) hypertension (I10) Active confirmed Problem Bradycardia (75273543) Bradycardia, unspecified (R00.1) Active confirmed Vital Signs Heart Rate 67 /min 08/23/2024 Temperature 96.1 degrees Fahrenheit 08/23/2024 Blood pressure diastolic 78 mm Hg 08/23/2024 Oximetry 100 % 08/23/2024 Height 68.62 in 08/23/2024 Blood pressure systolic 128 mm Hg 08/23/2024 Weight 203.2 lbs 08/23/2024 BMI 30.34 kg/m2 08/23/2024 Encounters Encounter Location Date Provider Diagnosis [address] [place] [address] 11/23/2023 KRISS CARRERA Generalized anxiety disorder F41.1 ; Plantar fascial fibromatosis M72.2 ; Essential (primary) hypertension I10 and Mixed hyperlipidemia E78.[address] [place] [address] 02/22/2024 KRISS CARRERA Generalized anxiety disorder F41.1 ; Atherosclerosis of coronary artery bypass graft(s) without angina pectoris I25.810 ; Essential (primary) hypertension I10 and Mixed hyperlipidemia E78.[address] [place] [address] 03/17/2024 Ghadeer Mazloum Headache, unspecifie d R51.[address] [place] [address] 05/24/2024 KRISS CARRERA Generalized anxiety disorder F41.1 and Essential (primary) hypertension I10 [address] [place] [address] 08/23/2024 MONTERROSO GUL Essential (primary) hypertension I10 ; Mixed hyperlipidemia E78.2 ; Gastro-esophageal reflux disease without esophagitis K21.9 ; Atherosclerosis of coronary artery bypass graft(s) without angina pectoris I25.810 ; Generalized anxiety disorder F41.1 and Hemochromatosis, unspecified E83.[address] [place] [address] 08/21/2024 KRISS CARRERA Essential (primary) hypertension I10 ; Mixed hyperlipidemia E78.2 and Iron deficiency E61.1 [facility] [address] [place] [address] 08/25/2024 KRISS CARRERA Assessments Encounter Date Diagnosis (ICD Code) Assessment Notes Treatment Notes Treatment Clinical Notes Section Notes 11/23/2023 Generalized anxiety disorder (ICD-10 - F41.1) Mr. Pacheco is an 83-year-old gentleman with BOO, CAD, GERD, hypertension, lumbar radiculopathy and hemochromatosis here for follow up. He complains of plantar fasciitis which is worse in the morning. Plan is as follows: Hypertension. His blood pressure is running high in the office today. Cut back on sodium intake. Advised appropriate hydration, cardio exercises and weight loss. Continue Lisinopril 10 MG once a day. Hyperlipidemia. Continue Atorvastatin 40 MG once a day. CAD. He is stable at his point and he is on right medications. Generalized anxiety disorder. Mood is stable on current regimen. Hemochromatosis. He gets phlebotomies every 3 months and he sees Dr. Reddy Plantar fasciitis. Patient encouraged to increase frequency, intensity and duration of exercise. Use planta fasciitis splint at night. General health concerns discussed with patient. Scribe services used to formulate this note under HIPAA compliance and under [place] law mandated for scribe services. Patient aware of service. Verbal consent and written consent taken from the patient. Patient understands and verbalizes understanding of the scribes services and all questions answered regarding scribes services. Patient agrees to use of scribes services. 11/23/2023 Plantar fascial fibromatosis (ICD-10 - M72.2) Mr. Pacheco is an 83-year-old gentleman with BOO, CAD, GERD, hypertension, lumbar radiculopathy and hemochromatosis here for follow up. He complains of plantar fasciitis which is worse in the morning. Plan is as follows: Hypertension. His blood pressure is running high in the office today. Cut back on sodium intake. Advised appropriate hydration, cardio exercises and weight loss. Continue Lisinopril 10 MG once a day. Hyperlipidemia. Continue Atorvastatin 40 MG once a day. CAD. He is stable at his point and he is on right medications. Generalized anxiety disorder. Mood is stable on current regimen. Hemochromatosis. He gets phlebotomies every 3 months and he sees Dr. Reddy Plantar fasciitis. Patient encouraged to increase frequency, intensity and duration of exercise. Use planta fasciitis splint at night. General health concerns discussed with patient. Scribe services used to formulate this note under HIPAA compliance and under [place] law mandated for scribe services. Patient aware of service. Verbal consent and written consent taken from the patient. Patient understands and verbalizes understanding of the scribes services and all questions answered regarding scribes services. Patient agrees to use of scribes services. 02/22/2024 Generalized anxiety disorder (ICD-10 - F41.1) Mr. Pacheco is an 84-year-old gentleman with BOO, CAD, GERD, hypertension, lumbar radiculopathy and hemochromatosis here for follow up. Plan is as follows: Hypertension. His blood pressure is running high in the office today. Cut back on sodium intake. Advised appropriate hydration, cardio exercises and weight loss. Continue Lisinopril 10 MG once a day. Hyperlipidemia. Continue Atorvastatin 40 MG once a day. CAD. He is stable at his point and he is on right medications. Generalized anxiety disorder. Mood is stable on current regimen diazepam. He is on controlled substance contract. Hemochromatosis. He gets phlebotomies every 3 months and he sees Dr. Reddy General health concerns discussed with patient. Scribe services used to formulate this note under HIPAA compliance and under [place] law mandated for scribe services. Patient aware of service. Verbal consent and written consent taken from the patient. Patient understands and verbalizes understanding of the scribes services and all questions answered regarding scribes services. Patient agrees to use of scribes services. 03/17/2024 Headache, unspecified (ICD-10 - R51.9) Mr. Pacheco is an 84-year-old gentleman with BOO, CAD, GERD, hypertension, lumbar radiculopathy and hemochromatosis here for left sided head pain. Plan is as follows: Headache: Symptoms has been occuring for the past 1 week. Per patient that it is only tender to palpate though he does not have constant headache. Denies any weakness, blurry vision, dizziness, fever, muscle pain, rash. PE is remarkable to sensitivity on the left frontal. No tenderness to temporal bone to suggest temporal arteritis, no neurlogical neurodeficit on exam to suggest early stroke symptoms. No rash is noted on on the back, face, eyes or ears to suggest shingles. Patient if he develops any red flag symptoms of weakness, facial drooping, blurry vision, rash he should immediately go to the ER. Patient seen and examined with PA. Agree with the above mentioned assessment and plan 08/21/2024 Essential (primary) hypertension (ICD-10 - I10) 08/23/2024 Essential (primary) hypertension (ICD-10 - I10) Ehsan is 84 years old gentleman with hypertension, hyperlipidemia, generalized anxiety disorder, hemochromatosis, coronary artery disease, degenerative disc disease is here for follow-up. Plan is as follows Generalized anxiety disorder. He is on diazepam 5 mg and he has a controlled substance contract. No apparent behavior and he does not ask for early refills. Hypertension/hyper lipidemia. Blood pressure well controlled on metoprolol 25 mg 1 tablet twice a day along with lisinopril 10 mg daily and he takes atorvastatin 40 mg 1 tablet daily at bedtime. Lipid panel before next appointment. Hemochromatosis. He follows up with golf club maker and have intermittent phlebotomies Coronary artery disease. He is stable and he is on the right medications. Screening blood work before next appointment 05/24/2024 Generalized anxiety disorder (ICD-10 - F41.1) Mr. Pacheco is an 84-year-old gentleman with BOO, CAD, GERD, hypertension, lumbar radiculopathy and hemochromatosis here for follow up. Plan is as follows: Hypertension. His blood pressure is running high in the office today. Cut back on sodium intake. Advised appropriate hydration, cardio exercises and weight loss. Continue Lisinopril 10 MG once a day. Hyperlipidemia. Continue Atorvastatin 40 MG once a day. CAD. He is stable at his point and he is on right medications. Generalized anxiety disorder. Mood is stable on current regimen diazepam. He is on controlled substance contract. Hemochromatosis. He gets phlebotomies every 3 months and he sees Dr[address] Reddy General health concerns discussed with patient. Scribe services used to formulate this note under HIPAA compliance and under [place] law mandated for scribe services. Patient aware of service. Verbal consent and written consent taken from the patient. Patient understands and verbalizes understanding of the scribes services and all questions answered regarding scribes services. Patient agrees to use of scribes services. 05/24/2024 Essential (primary) hypertension (ICD-10 - I10) Mr. Pacheco is an 84-year-old gentleman with BOO, CAD, GERD, hypertension, lumbar radiculopathy and hemochromatosis here for follow up. Plan is as follows: Hypertension. His blood pressure is running high in the office today. Cut back on sodium intake. Advised appropriate hydration, cardio exercises and weight loss. Continue Lisinopril 10 MG once a day. Hyperlipidemia. Continue Atorvastatin 40 MG once a day. CAD. He is stable at his point and he is on right medications. Generalized anxiety disorder. Mood is stable on current regimen diazepam. He is on controlled substance contract. Hemochromatosis. He gets phlebotomies every 3 months [address] he sees Dr[address] Reddy General health concerns discussed with patient. Scribe services used to formulate this note under HIPAA compliance and under [place] law mandated for scribe services. Patient aware of service. Verbal consent and written consent taken from the patient. Patient understands and verbalizes understanding of the scribes services and all questions answered regarding scribes services. Patient agrees to use of scribes services. 08/23/2024 Mixed hyperlipidemia (ICD-10 - E78.2) Ehsan is 84 years old gentleman with hypertension, hyperlipidemia, generalized anxiety disorder, hemochromatosis, coronary artery disease, degenerative disc disease is here for follow-up. Plan is as follows Generalized anxiety disorder. He is on diazepam 5 mg and he has a controlled substance contract. No apparent behavior and he does not ask for early refills. Hypertension/hyper lipidemia. Blood pressure well controlled on metoprolol 25 mg 1 tablet twice a day along with lisinopril 10 mg daily and he takes atorvastatin 40 mg 1 tablet daily at bedtime. Lipid panel before next appointment. Hemochromatosis. He follows up with golf club maker and have intermittent phlebotomies Coronary artery disease. He is stable and he is on the right medications. Screening blood work before next appointment 08/21/2024 Mixed hyperlipidemia (ICD-10 - E78.2) 02/22/2024 Atherosclerosis of coronary artery bypass graft(s) without angina pectoris (ICD-10 - I25.810) Mr. Pacheco is an 84-year-old gentleman with BOO, CAD, GERD, hypertension, lumbar radiculopathy and hemochromatosis here for follow up. Plan is as follows: Hypertension. His blood pressure is running high in the office today. Cut back on sodium intake. Advised appropriate hydration, cardio exercises and weight loss. Continue Lisinopril 10 MG once a day. Hyperlipidemia. Continue Atorvastatin 40 MG once a day. CAD. He is stable at his point and he is on right medications. Generalized anxiety disorder. Mood is stable on current regimen diazepam. He is on controlled substance contract. Hemochromatosis. He gets phlebotomies every 3 months [address] he sees Dr[address] Reddy General health concerns discussed with patient. Scribe services used to formulate this note under HIPAA compliance and under [place] law mandated for scribe services. Patient aware of service. Verbal consent and written consent taken from the patient. Patient understands and verbalizes understanding of the scribes services and all questions answered regarding scribes services. Patient agrees to use of scribes services. 11/23/2023 Essential (primary) hypertension (ICD-10 - I10) Mr. Pacheco is an 83-year-old gentleman with BOO, CAD, GERD, hypertension, lumbar radiculopathy and hemochromatosis here for follow up. He complains of plantar fasciitis which is worse in the morning. Plan is as follows: Hypertension. His blood pressure is running high in the office today. Cut back on sodium intake. Advised appropriate hydration, cardio exercises and weight loss. Continue Lisinopril 10 MG once a day. Hyperlipidemia. Continue Atorvastatin 40 MG once a day. CAD. He is stable at his point and he is on right medications. Generalized anxiety disorder. Mood is stable on current regimen. Hemochromatosis. He gets phlebotomies every 3 months and he sees Dr[address] Reddy Plantar fasciitis. Patient encouraged to increase frequency, intensity and duration of exercise. Use planta fasciitis splint at night. General health concerns discussed with patient. Scribe services used to formulate this note under HIPAA compliance and under [place] law mandated for scribe services. Patient aware of service. Verbal consent and written consent taken from the patient. Patient understands and verbalizes understanding of the scribes services and all questions answered regarding scribes services. Patient agrees to use of scribes services. 11/23/2023 Mixed hyperlipidemia (ICD-10 - E78.2) Mr. Pacheco is an 83-year-old gentleman with BOO, CAD, GERD, hypertension, lumbar radiculopathy and hemochromatosis here for follow up. He complains of plantar fasciitis which is worse in the morning. Plan is as follows: Hypertension. His blood pressure is running high in the office today. Cut back on sodium intake. Advised appropriate hydration, cardio exercises and weight loss. Continue Lisinopril 10 MG once a day. Hyperlipidemia. Continue Atorvastatin 40 MG once a day. CAD. He is stable at his point and he is on right medications. Generalized anxiety disorder. Mood is stable on current regimen. Hemochromatosis. He gets phlebotomies every 3 months [address] Reddy Plantar fasciitis. Patient encouraged to increase frequency, intensity and duration of exercise. Use planta fasciitis splint at night. General health concerns discussed with patient. Scribe services used to formulate this note under HIPAA compliance and under [place] law mandated for scribe services. Patient aware of service. Verbal consent and written consent taken from the patient. Patient understands and verbalizes understanding of the scribes services and all questions answered regarding scribes services. Patient agrees to use of scribes services. 02/22/2024 Essential (primary) hypertension (ICD-10 - I10) Mr. Pacheco is an 84-year-old gentleman with BOO, CAD, GERD, hypertension, lumbar radiculopathy and hemochromatosis here for follow up. Plan is as follows: Hypertension. His blood pressure is running high in the office today. Cut back on sodium intake. Advised appropriate hydration, cardio exercises and weight loss. Continue Lisinopril 10 MG once a day. Hyperlipidemia. Continue Atorvastatin 40 MG once a day. CAD. He is stable at his point and he is on right medications. Generalized anxiety disorder. Mood is stable on current regimen diazepam. He is on controlled substance contract. Hemochromatosis. He gets phlebotomies every 3 months [address] Reddy General health concerns discussed with patient. Scribe services used to formulate this note under HIPAA compliance and under [place] law mandated for scribe services. Patient aware of service. Verbal consent and written consent taken from the patient. Patient understands and verbalizes understanding of the scribes services and all questions answered regarding scribes services. Patient agrees to use of scribes services. 08/21/2024 Iron deficiency (ICD-10 - E61.1) 08/23/2024 Gastro-esophageal reflux disease without esophagitis (ICD-10 - K21.9) Ehsan is 84 years old gentleman with hypertension, hyperlipidemia, generalized anxiety disorder, hemochromatosis, coronary artery disease, degenerative disc disease is here for follow-up. Plan is as follows Generalized anxiety disorder. He is on diazepam 5 mg and he has a controlled substance contract. No apparent behavior and he does not ask for early refills. Hypertension/hyper lipidemia. Blood pressure well controlled on metoprolol 25 mg 1 tablet twice a day along with lisinopril 10 mg daily and he takes atorvastatin 40 mg 1 tablet daily at bedtime. Lipid panel before next appointment. Hemochromatosis. He follows up with golf club maker and have intermittent phlebotomies Coronary artery disease. He is stable and he is on the right medications. Screening blood work before next appointment 08/23/2024 Atherosclerosis of coronary artery bypass graft(s) without angina pectoris (ICD-10 - I25.810) Ehsan is 84 years old gentleman with hypertension, hyperlipidemia, generalized anxiety disorder, hemochromatosis, coronary artery disease, degenerative disc disease is here for follow-up. Plan is as follows Generalized anxiety disorder. He is on diazepam 5 mg and he has a controlled substance contract. No apparent behavior and he does not ask for early refills. Hypertension/hyper lipidemia. Blood pressure well controlled on metoprolol 25 mg 1 tablet twice a day along with lisinopril 10 mg daily and he takes atorvastatin 40 mg 1 tablet daily at bedtime. Lipid panel before next appointment. Hemochromatosis. He follows up with golf club maker and have intermittent phlebotomies Coronary artery disease. He is stable and he is on the right medications. Screening blood work before next appointment 02/22/2024 Mixed hyperlipidemia (ICD-10 - E78.2) Mr. Pacheco is an 84-year-old gentleman with BOO, CAD, GERD, hypertension, lumbar radiculopathy and hemochromatosis here for follow up. Plan is as follows: Hypertension. His blood pressure is running high in the office today. Cut back on sodium intake. Advised appropriate hydration, cardio exercises and weight loss. Continue Lisinopril 10 MG once a day. Hyperlipidemia. Continue Atorvastatin 40 MG once a day. CAD. He is stable at his point and he is on right medications. Generalized anxiety disorder. Mood is stable on current regimen diazepam. He is on controlled substance contract. Hemochromatosis. He gets phlebotomies every 3 months and he sees Dr. Reddy General health concerns discussed with patient. Scribe services used to formulate this note under HIPAA compliance and under [place] law mandated for scribe services. Patient aware of service. Verbal consent and written consent taken from the patient. Patient understands and verbalizes understanding of the scribes services and all questions answered regarding scribes services. Patient agrees to use of scribes services. 08/23/2024 Generalized anxiety disorder (ICD-10 - F41.1) Ehsan is 84 years old gentleman with hypertension, hyperlipidemia, generalized anxiety disorder, hemochromatosis, coronary artery disease, degenerative disc disease is here for follow-up. Plan is as follows Generalized anxiety disorder. He is on diazepam 5 mg and he has a controlled substance contract. No apparent behavior and he does not ask for early refills. Hypertension/hyper lipidemia. Blood pressure well controlled on metoprolol 25 mg 1 tablet twice a day along with lisinopril 10 mg daily and he takes atorvastatin 40 mg 1 tablet daily at bedtime. Lipid panel before next appointment. Hemochromatosis. He follows up with golf club maker and have intermittent phlebotomies Coronary artery disease. He is stable and he is on the right medications. Screening blood work before next appointment 08/23/2024 Hemochromatosis, unspecified (ICD-10 - E83.119) Ehsan is 84 years old gentleman with hypertension, hyperlipidemia, generalized anxiety disorder, hemochromatosis, coronary artery disease, degenerative disc disease is here for follow-up. Plan is as follows Generalized anxiety disorder. He is on diazepam 5 mg and he has a controlled substance contract. No apparent behavior and he does not ask for early refills. Hypertension/hyper lipidemia. Blood pressure well controlled on metoprolol 25 mg 1 tablet twice a day along with lisinopril 10 mg daily and he takes atorvastatin 40 mg 1 tablet daily at bedtime. Lipid panel before next appointment. Hemochromatosis. He follows up with golf club maker and have intermittent phlebotomies Coronary artery disease. He is stable and he is on the right medications. Screening blood work before next appointment Plan Of Treatment Pending Test Test Name Order Date Ultrasound : Doppler : Veins Leg Left CBC (COMPLETE BLOOD COUNT) 05/21/2022 FERRITIN 05/21/2022 IRON & TIBC 05/21/2022 Albumin/Creatinine Ratio,[id number] Future Test Test Name Order Date CBC With Differential/Platelet-[id number] Albumin/Creatinine Ratio,Urine-[id number] Lipid Panel-[id number] 08/23/2024 Comp. Metabolic Panel [id number] 2023 Next Appt Details Provider Name:MONTERROSO A DEANDRE , 11/14/2024 10:45:00 AM, [address] [place] [address], [phone], Insurance Providers Payer Name Payer Address Payer Phone Subscriber Number Group Number Insured Name Patient Relationship to Insured Coverage Start Date Coverage End Date [facility] [address] [place] [address] [id number] Ehsan Pacheco Self - patient is the insured Medical (General) History Medical History History ICD Code Anxiety disorder, unspecified F41.9 Atherosclerotic heart diseas e of ione coronary artery without angina pectoris I25.10 Benign prostatic hyperplasia without low er urinary tract symptoms N40.0 Diverticulosis of intestine, part unspecified, without perforation or abscess without bleeding K57.90 Hyperlipidemia, unspecified E78.5 Other terminal makeup operator (current) drug therapy Z 79.899 Gastro-esophageal reflux disease without esophagitis K21.9 Personal history of other benign neoplas m Z86.018 Essential (primary) hypertension I10 Bilateral hearing loss and uses hearing aids Hereditary hemochromatosis, 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
--- OUTSIDE RECORDS SUMMARY | 2024-09-01 10:57 | XMS_ITS ---
Author Organization [facility] Address [address] [place] [address] Care Team Providers Care Lead Web Application Developer Name Role Phone KRISS CARRERA Primary Care Provider Allergies Allergen (clinical drug ingredient) Drug/Non Drug Allergy documented on EMR Reaction Allergy Type Onset Date Status escitalopram Lexapro Unknown Drug Allergy Acti ve paroxetine Paxil Unknown Drug Allergy Active sertraline Zoloft Unknown Drug Allergy Active REASON FOR VISIT 3 month f/u Medications Medication SIG (Take, Route, Frequency, Duration) Notes Start Date End Date Status Lisinopril 10 MG TAKE 1 TABLET BY SANDRA TH EVERY DAY FOR 90 DAYS Orally Once a day for 90 days Active Atorvastatin Calcium 40 MG TAKE 1 TABLET BY MOUTH EVERY DAY FOR 90 DAYS for 90 Active Metoprolol Tartrate 25 MG TAKE 1/2 TABLE T TWICE A DAY WITH FOOD for 90 days Active Nitroglycerin 0.4 MG as directed Subling ual as needed for chest pain for 90 days Active Fish Oil 1000 MG 1 capsule Orally Onc e a day for 30 day(s) Active diazePAM 5 MG TAKE 1 TABLET BY SANDRA TH EVERY DAY for 30 07/19/2024 Active Probiotic - as directed Orally o nce a day Active Aspirin Adult Low Strength 81 MG 1 tablet Orally Once a day for 30 day(s) Active Gabapentin 100 MG 1 capsule Orally Onc e a day Active Social History Tobacco Use: Social History Observation [...] ast year? No Points 0 Interpretation Negative Vital Signs Temperature 96.1 degrees Fahrenheit 08/23/20 24 Oximetry 100 % 08/23/2024 Heart Rate 67 /min 08/23/2024 Blood pressure systolic 128 mm Hg 08/23/20 24 Blood pressure diastolic 78 mm Hg 024 Weight 203.2 lbs 08/23/2024 BMI 30.34 kg/m2 08/23/2024 Height 68.62 in 08/23/2024 Encounters Encounter Location Date Provider Diagnosis [facility] [address] [id number] 08/23/2024 KRISS CARRERA Essential (primary) hypertension I10 ; Mixed hyperlipidemia E78.2 ; Gastro-esophageal reflux disease without esophagitis K21.9 ; Atherosclerosis of coronary artery bypass graft(s) without angina pectoris I25.810 ; Generalized anxiety disorder F41.1 and Hemochromatosis, unspecified E83.119 Assessments Encounter Date Diagnosis (ICD Code) Assessment Notes Treatment Notes Treatment Clinical Notes Section Notes 08/23/2024 Essential (primary) hypertension (ICD-10 - I10) Ehsan is 84 years old gentleman with hypertension, hyperlipidemia, generalized anxiety disorder, hemochromatosis , coronary artery disease, degenerative disc disease is here for follow-up. Plan is as follows Generalized anxiety disorder. He is on diazepam 5 mg and he has a controlled substance contract. No apparent behavior and he does not ask for early refills. Hypertension/hy perlipidemia. Blood pressure well controlled on metoprolol 25 mg 1 tablet twice a day along with lisinopril 10 mg daily and he takes atorvastatin 40 mg 1 tablet daily at bedtime. Lipid panel before next appointment. Hemochromatosis . He follows up with grain unloader machine and have intermittent phlebotomies Coronary artery disease. He is stable and he is on the right medications. Screening blood work before next appointment 08/23/2024 Mixed hyperlipidemia (ICD-10 - E78.2) Ehsan is 84 years old gentleman with hypertension, hyperlipidemia, generalized anxiety disorder, hemochromatosis , coronary artery disease, degenerative disc disease is here for follow-up. Plan is as follows Generalized anxiety disorder. He is on diazepam 5 mg and he has a controlled substance contract. No apparent behavior and he does not ask for early refills. Hypertension/hy perlipidemia. Blood pressure well controlled on metoprolol 25 mg 1 tablet twice a day along with lisinopril 10 mg daily and he takes atorvastatin 40 mg 1 tablet daily at bedtime. Lipid panel before next appointment. Hemochromatosis . He follows up with grain unloader machine and have intermittent phlebotomies Coronary artery disease. He is stable and he is on the right medications. Screening blood work before next appointment 08/23/2024 Gastro-esophageal reflux disease without esophagitis (ICD-10 - K21.9) Ehsan is 84 years old gentleman with hypertension, hyperlipidemia, generalized anxiety disorder, hemochromatosis , coronary artery disease, degenerative disc disease is here for follow-up. Plan is as follows Generalized anxiety disorder. He is on diazepam 5 mg and he has a controlled substance contract. No apparent behavior and he does not ask for early refills. Hypertension/hy perlipidemia. Blood pressure well controlled on metoprolol 25 mg 1 tablet twice a day along with lisinopril 10 mg daily and he takes atorvastatin 40 mg 1 tablet daily at bedtime. Lipid panel before next appointment. Hemochromatosis . He follows up with grain unloader machine and have intermittent phlebotomies Coronary artery disease. He is stable and he is on the right medications. Screening blood work before next appointment 08/23/2024 Atherosclerosis of coronary artery bypass graft(s) without angina pectoris (ICD-10 - I25.810) Ehsan is 84 years old gentleman with hypertension, hyperlipidemia, generalized anxiety disorder, hemochromatosis , coronary artery disease, degenerative disc disease is here for follow-up. Plan is as follows Generalized anxiety disorder. He is on diazepam 5 mg and he has a controlled substance contract. No apparent behavior and he does not ask for early refills. Hypertension/hy perlipidemia. Blood pressure well controlled on metoprolol 25 mg 1 tablet twice a day along with lisinopril 10 mg daily and he takes atorvastatin 40 mg 1 tablet daily at bedtime. Lipid panel before next appointment. Hemochromatosis . He follows up with grain unloader machine and have intermittent phlebotomies Coronary artery disease. He is stable and he is on the right medications. Screening blood work before next appointment 08/23/2024 Generalized anxiety disorder (ICD-10 - F41.1) Ehsan is 84 years old gentleman with hypertension, hyperlipidemia, generalized anxiety disorder, hemochromatosis , coronary artery disease, degenerative disc disease is here for follow-up. Plan is as follows Generalized anxiety disorder. He is on diazepam 5 mg and he has a controlled substance contract. No apparent behavior and he does not ask for early refills. Hypertension/hy perlipidemia. Blood pressure well controlled on metoprolol 25 mg 1 tablet twice a day along with lisinopril 10 mg daily and he takes atorvastatin 40 mg 1 tablet daily at bedtime. Lipid panel before next appointment. Hemochromatosis . He follows up with grain unloader machine and have intermittent phlebotomies Coronary artery disease. He is stable and he is on the right medications. Screening blood work before next appointment 08/23/2024 Hemochromatosis, unspecified (ICD-10 - E83.119) Ehsan is 84 years old gentleman with hypertension, hyperlipidemia, generalized anxiety disorder, hemochromatosis , coronary artery disease, degenerative disc disease is here for follow-up. Plan is as follows Generalized anxiety disorder. He is on diazepam 5 mg and he has a controlled substance contract. No apparent behavior and he does not ask for early refills. Hypertension/hy perlipidemia. Blood pressure well controlled on metoprolol 25 mg 1 tablet twice a day along with lisinopril 10 mg daily and he takes atorvastatin 40 mg 1 tablet daily at bedtime. Lipid panel before next appointment. Hemochromatosis . He follows up with grain unloader machine and have intermittent phlebotomies Coronary artery disease. He is stable and he is on the right medications. Screening blood work before next appointment Plan Of Treatment Future Test Test Name Order Date CBC With Differential/Platelet-[id number] Albumin/Creatinine Ratio,Urine-[id number] Lipid Panel-[id number] 08/23/2024 Comp. Metabolic Panel [id number] 2023 Next Appt Details Follow Up: 3 Months, Reason: Provider Name:KRISS CARRERA , 11/14/2024 10:45:00 AM, [address] [address], [place], [phone], Procedure Notes * Category Sub-Category Detail Notes Urine Toxicology Urine Toxicology Cocaine: Negative Morphine: Negative Marijuanna: Negative Benzodiazepines: Positive Oxycodone: Negative Amphetamine: Negative Barbiturates: Negative Buprenorphine: Negative Methadone: Negative MDMA: Negative Proproxyphene: Negative Phencyclidine: Negative Tricyclic Antidepressant: Negative Fentanyl: Negative Alcohol: Negative MET: Negative Progress Notes * Maris PACHECO:1940 ( 84 yo M)Acc No.[id number]:08/23/2024 Progress Notes Patient:?Ehsan PACHECO Provider:?KRISS CRARERA MD :1940???Age:84 Y???Sex:Male Lorenzo e:08/23/2024 Address:[address] [place] [address] [place], [id number] Subjective: * Chief Complaints: * ???3 month f/u * HPI: ???Internal Medicine:? Mr. Pacheco is an 84-year-old gentleman with BOO, CAD, GERD, hypertension, lumbar radiculopathy and hemochromatosis here for follow up. He went for phlebotomy for his hemochromatosis not too long ago. He is physically active. He gained 2 lbs since last visit. Mood is stable on current regimen. He sleeps well, appetite is good. No GI or symptoms. He denies any other active issues or concerns. * ROS:?General/Constitutional:?Overall health?Good.?Change in appetite?denies.?Chills?denies.?Fever?denies.?Night sweats?denies.?Sleep disturbance?denies.?Weight gain?denies.?Weight loss?denies.?Neurologic:?Difficulty speaking?denies.?Dizziness?denies.?Gait abnormality?denies.?Headache?denies.?Loss of strength?denies.?Memory loss?denies.?Seizures?denies.?Tingling/Numbness?denies .?Ophthalmologic:?Blurred vision?denies.?Discharge?denies.?Dry eye?denies.?Red eye?denies.?ENT:?Change in Voice?Denies.?Cold Symptoms?Denies.?Cough?Denies.?Dizziness?Denies.?Nasal Congestion?Denies.?Otalgia?Denies.?postnasal drip?Denies.?Blocked ear?denies.?Nosebleed?denies.?Snoring?denies.?Cardiovascular:?Diaphoresis?Denies.?Pedal Edema?Denies.?PND (Paroxsymal nocturnal dyspnea)?Denies.?Chest pain?denies.?Difficulty laying flat?denies.?Dyspnea on exertion?denies.?Heart murmur?denies.?Orthopnea?denies.?Respiratory:?Snoring?denies.?Asthma?denies.?Cough?denies.?Shortness of breath with exertion?denies.?Sputum production?denies.?Wheezing?denies.?Gastrointestinal:?Change in bowel habits?denies.?Constipation?denies.?Decreased appetite?denies.?Diarrhea?denies.?Heartburn?denies.?Nausea?denies.?Vomiting?holland es.?Musculoskeletal:?tingling/numbness?Denies.?myalgias?Denies.?Joint Swelling?Denies.?extremeties?normal.?Arthritis?denies.?Back problems?denies.?Carpal tunnel?denies.?Joint stiffness?denies.?Muscle aches?denies.?Endocrine:?Bowel Changes?Denies.?Breast Discharge?Denies.?poor libido?Denies.?Cold intolerance?denies.?Excessive sweating?denies.?Excessive thirst?denies.?Frequent urination?denies.?Thyroid problems?denies.?Skin:?Bruising?Denies.?Eczema?denies.?Hair changes?denies.?Rash?denies.?Skin lesion(s)?denies.?Psychiatric:?Anxiety?denies.?Depressed mood?denies.?Difficulty sleeping?denies.?Nervous breakdown?denies.?Substance abuse?denies.?Urology:?abnormal menstrual bleeding?denies.?blood in urine?denies.?burning on urination?denies.?difficulty urinating?denies.?discharge?denies.?dysuria?denies.? * Medical History:? * Surgical History:?appendecto my cath stent placement [address] Cordova balloon angioplasty lumbar ablation right cataract surgery, Dr. Taveras[facility] 02/2023 * Hospitalization/Major Diagno stic Procedure:? * Family History:?Father: dece ased, coronary artery disease.?Mother: , breast cancer.?Children: diagnosed with Heart Disease.? * Social History:?Tobacco Use:?Tobacco Use/Smoking?Are you a?former smoker ?How long has it been since you last smoked??> 10 years ???Drugs/Alcohol:?Drugs?Have you used drugs other than those for medical reasons in the past 12 months??No ?Alcohol Screen (Audit-C)?Did you have a drink containing alcohol in the past year??No ?Points?0 ?Interpretation?Negative ???Miscellaneous:?Exercise: walking almost every day. ?Marital status: . ?Occupation: Retired. * Medications:?TakingGabapenti n 100 MG Capsule 1 capsule Orally Once a day Aspirin Adult Low Strength 81 MG Tablet Delayed Release 1 tablet Orally Once a day Probiotic - Capsule as directed Orally once a day Fish Oil 1000 MG Capsule 1 capsule Orally Once a day Nitroglycerin 0.4 MG Tablet Sublingual as directed Sublingual as needed for chest pain Atorvastatin Calcium 40 MG Tablet TAKE 1 TABLET BY MOUTH EVERY DAY FOR 90 DAYS Lisinopril 10 MG Tablet TAKE 1 TABLET BY MOUTH EVERY DAY FOR 90 DAYS Orally Once a day Metoprolol Tartrate 25 MG Tablet TAKE 1/2 TABLET TWICE A DAY WITH FOOD diazePAM 5 MG Tablet TAKE 1 TABLET BY MOUTH EVERY DAY Medication List reviewed and reconciled with the patientTaking Gabapentin 100 MG Capsule 1 capsule Orally Once a day Taking Aspirin Adult Low Strength 81 MG Tablet Delayed Release 1 tablet Orally Once a day Taking Probiotic - Capsule as directed Orally once a day Taking Fish Oil 1000 MG Capsule 1 capsule Orally Once a day Taking Nitroglycerin 0.4 MG Tablet Sublingual as directed Sublingual as needed for chest pain Taking Atorvastatin Calcium 40 MG Tablet TAKE 1 TABLET BY MOUTH EVERY DAY FOR 90 DAYS Taking Lisinopril 10 MG Tablet TAKE 1 TABLET BY MOUTH EVERY DAY FOR 90 DAYS Orally Once a day Taking Metoprolol Tartrate 25 MG Tablet TAKE 1/2 TABLET TWICE A DAY WITH FOOD Taking diazePAM 5 MG Tablet TAKE 1 TABLET BY MOUTH EVERY DAY Medication List reviewed and reconciled with the patient * Allergies:?Lexapro: AllergyP axil: AllergyZoloft: Allergyno[Allergies Verified] Objective: * Vitals:?Temp: 96.1 F, Oxygen sat %: 100 %, HR: 67 /min, BP: 144/80 mm Hg,128/78 mm Hg, Wt: 203.2 lbs, BMI: 30.34 Index, Ht: 68.62 in. * ???Past Orders: ???Lab:COMPREHENSIVE METABOL IC PANEL (Order Date - 01/20/2024) (Collection Date & Time - 01/20/2024 11:14 AM) ? Value Reference Range ?ALBUMIN 3.7 3.2-5.0 - G/ dL ?ALK PHOS 75 42-121 - U/ L ?SGPT 35 10-60 - U/L ?ANION GAP 5 3-11 - ?SGOT 21 10-42 - U/L ?BILI,TOTAL 0.8 0.0-1.4 - mg/dL ?BUN 21 5-25 - mg/dL ?CALCIUM 8.9 8.5-10.5 - m g/dL ?CHLORIDE 107 96-110 - mm ol/L ?CO2 30 21-32 - mmol/L ?CREAT 0.99 0.7-1.3 - mg/d L ?GLOMERULAR FILTRATION RATE 77 >60 - ?GLUCOSE 122 H 70-100 - mg/ dL ?POTASSIUM 4.9 3.5-5.5 - mmol/L ?SODIUM 142 135-145 - mEq /L ?TOTAL PROTEIN 6.6 6.0-8. 0 - G/dL * Examination: ???General Examination: ?Psychiatry?Normal.?GENERAL APPEARANCE:?Well developed, well nourished, in no acute distress.?MUSCULOSKELETAL:?Normal.?HEAD:?Normocephalic, atraumatic,tender to palpate along the left frontal?.?EYES:?Pupils equal, round, reactive to light and accommodation, sclera non-icteric.?EARS:?Normal.?ORAL CAVITY:?Normal.?THROAT:?Clear.?OROPHARYNX?Normal.?SINUSES?Normal.?NECK/THYROID:?Neck supple, full range of motion, no cervical lymphadenopathy.?SKIN:?Warm and dry, no suspicious lesions.?HEART:?Normal.?LUNGS:?Normal.?BREASTS:?__.?ABDOMEN:?Soft, nontender, nondistended, bowel sounds present, normal.?EXTREMITIES:?Normal.?PERIPHERAL PULSES:?Normal.?NEUROLOGIC:?Nonfocal,? appropriate?motor strength normal upper and lower extremities, sensory exam intact.?FEMALE GENITOURINARY:?__.?MALE GENITOURINARY:?__.?PODIATRIC:?Normal.?It Trainee? .? Assessment: * Assessment: 1.?Essential (primary) hyper tension - I10 (Primary)???2.?Mixed hyperlipidemia - E78.2???3.?Gastro-esophageal reflux disease without esophagitis - K21.9???4.?Atherosclerosis of coronary artery bypass graft(s) without angina pectoris - I25.810???5.?Generalized anxiety disorder - F41.1???6.?Hemochromatosis, unspecified - E83.119??? Ehsan is 84 years old gentl eman with hypertension, hyperlipidemia, generalized anxiety disorder, hemochromatosis, coronary artery disease, degenerative disc disease is here for follow-up.? Plan is as follows Generalized anxiety disorder.? He is on diazepam 5 mg and he has a controlled substance contract.? No apparent behavior and he does not ask for early refills. Hypertension/hyperlipidemia.? Blood pressure well controlled on metoprolol 25 mg 1 tablet twice a day along with lisinopril 10 mg daily and he takes atorvastatin 40 mg 1 tablet daily at bedtime.? Lipid panel before next appointment. Hemochromatosis.? He follows up with grain unloader machine and have intermittent phlebotomies Coronary artery disease.? He is stable and he is on the right medications. Screening blood work before next appointment Plan: * Treatment: 2.?Hemochromatosis, unspecif ied?LAB: CBC With Differential/Platelet-[id number] (Ordered for 08/23/2024) * Procedures:?Urine Toxicology:?Urine Toxicology ?Cocaine?Negative ?Morphine?Negative ?Marijuanna?Negative ?Benzodiazepines?Positive ?Oxycodone?Negative ?Amphetamine?Negative ?Barbiturates?Negative ?Buprenorphine?Negative ?Methadone?Negative ?MDMA?Negative ?Proproxyphene?Negative ?Phencyclidine?Negative ?Tricyclic Antidepressant?Negative ?Fentanyl?Negative ?Alcohol?Negative ?MET?Negative? * Procedure Codes:?3078F DIAST BP < 80 MM [id number] SYST BP LT 130 MM [id number] DIAST BP 80-89 MM [id number] SYST BP = 140 MM HG6 [id number] DRUG TEST PRSMV DIR OPT OBS, Modifiers: QW * Follow Up:?3 Months * * Sign off status: Completed true * Provider:?KRISS CARRERA MD Date:?08/23 Generated for Blanka olivo/Surya/Karolitting on:?09/01/2024 10:56 AM EST History and Physical Notes * HPI (History of Present Illness) Category Sub-Category Detail Notes Category Not es Internal Medicine Mr. Junior jones s an 84-year-old gentleman with BOO, CAD, GERD, hypertension, lumbar radiculopathy and hemochromatosis here for follow up. He went for phlebotomy for his hemochromatosis not too long ago. He is physically active. He gained 2 lbs since last visit. Mood is stable on current regimen. He sleeps well, appetite is good. No GI or symptoms. He denies any other active issues or concerns. Examination Category Sub-Category Detail Notes Category Not es General Examination GENERAL APPEARANCE: Well dev eloped, well nourished, in no acute distress HEAD: Normocephalic, atrau matic, tender to palpate along the left frontal EYES: Pupils equal, round, reactive to light and accommodation, sclera non-icteric EARS: Normal THROAT: Clear NECK/THYROID: Neck supple, full ra nge of motion, no cervical lymphadenopathy HEART: Normal LUNGS: Normal ABDOMEN: Soft, nontender, non distended, bowel sounds present, normal NEUROLOGIC: Nonfocal, appropriat e motor strength normal upper and lower extremities, sensory exam intact SKIN: Warm and dry, no shreya picious lesions EXTREMITIES: Normal PERIPHERAL PULSES: Normal BREASTS: __ MUSCULOSKELETAL: Normal MALE GENITOURINARY: __ FEMALE GENITOURINARY: __ ORAL CAVITY: Normal PODIATRIC: Normal Psychiatry Normal OROPHARYNX Normal SINUSES Normal It Trainee
== END 2024-09-01 10:55 | disposition home or self-care (01) ==
LOC: HO.BBR 10:54
PROVIDERS: PCP Hospitalist; Visit Provider Internal Medicine
DX: Z13.89 Encounter for screening for other disorder (principal)

== ENCOUNTER 2024-11-01 09:54 | Outpatient (REF) | payer MEDICARE, SELFPAY ==
--- OUTSIDE RECORDS SUMMARY | 2024-11-01 11:46 | XMS_ITS ---
Author Organization [employer] Address [address] [place] [address] Care Team Providers Care Manager Animal Name Role Phone KRISS CARRERA Primary Care [...] 08/23/2024 Encounters Encounter Location Date Provider Diagnosis [facility] [address] [address] 08/23/2024 KRISS CARRERA Essential (primary) hypertension I10 [...] appointment. Hemochromatosis . He follows up with compound coating machine offbearer and have intermittent phlebotomies Coronary artery disease. [...] appointment. Hemochromatosis . He follows up with compound coating machine offbearer and have intermittent phlebotomies Coronary artery disease. [...] appointment. Hemochromatosis . He follows up with compound coating machine offbearer and have intermittent phlebotomies Coronary artery disease. [...] appointment. Hemochromatosis . He follows up with compound coating machine offbearer and have intermittent phlebotomies Coronary artery disease. [...] appointment. Hemochromatosis . He follows up with compound coating machine offbearer and have intermittent phlebotomies Coronary artery disease. [...] appointment. Hemochromatosis . He follows up with compound coating machine offbearer and have intermittent phlebotomies Coronary artery disease. He is stable and he is on the right medications. Screening blood work before next appointment Plan Of Treatment Future Test Test Name Order Date CBC With Differential/Platelet-[id number] Albumin/Creatinine Ratio,Urine-641085 Lipid Panel-[id number] 08/23/2024 Comp. Metabolic Panel ([id number] 2023 Next Appt Details Follow Up: 3 Months, Reason: Provider Name:KRISS CARRERA , 11/14/2024 10:45:00 AM, [address] [address], [place], [address], Procedure Notes * Category Sub-Category Detail Notes Urine Toxicology Urine Toxicology Cocaine: Negative Morphine: Negative Marijuanna: Negative Benzodiazepines: Positive Oxycodone: Negative Amphetamine: Negative Barbiturates: Negative Buprenorphine: Negative Methadone: Negative MDMA: Negative Proproxyphene: Negative Phencyclidine: Negative Tricyclic Antidepressant: Negative Fentanyl: Negative Alcohol: Negative MET: Negative Progress Notes * Maris PACHECO:1940 ( 84 yo M)Acc No.[id number]:08/23/2024 Progress Notes Patient:?Ehsan PACHECO Provider:?KRISS CARRERA MD :1940???Age:84 Y???Sex:Male Lorenzo e:08/23/2024 Address:[address] [place] [address] [id number] Subjective: * Chief Complaints: * ???3 month [...] and lower extremities, sensory exam intact.?FEMALE GENITOURINARY:?__.?MALE GENITOURINARY:?__.?PODIATRIC:?Normal.?[employer]? .? Assessment: * Assessment: 1.?Essential (primary) hyper [...] next appointment. Hemochromatosis.? He follows up with compound coating machine offbearer and have intermittent phlebotomies Coronary artery disease.? He is stable and he is on the right medications. Screening blood work before next appointment Plan: * Treatment: 2.?Hemochromatosis, unspecif ied?LAB: CBC With Differential/Platelet-[id number] (Ordered for 08/23/2024) * Procedures:?Urine Toxicology:?Urine Toxicology ?Cocaine?Negative ?Morphine?Negative ?Marijuanna?Negative ?Benzodiazepines?Positive ?Oxycodone?Negative ?Amphetamine?Negative ?Barbiturates?Negative ?Buprenorphine?Negative ?Methadone?Negative ?MDMA?Negative ?Proproxyphene?Negative ?Phencyclidine?Negative ?Tricyclic Antidepressant?Negative ?Fentanyl?Negative ?Alcohol?Negative ?MET?Negative? * Procedure Codes:?3078F DIAST BP < 80 MM [id number] SYST BP LT 130 MM [id number] DIAST BP 80-89 MM [id number] SYST BP = 140 MM HG6 [id number] DRUG TEST PRSMV DIR OPT OBS, Modifiers: QW * Follow Up:?3 Months * * Sign off status: Completed true * Provider:?KRISS CARRERA MD Date:?08/23 Generated for Blanka olivo/Surya/Neeta on:?11/01/2024 11:46 AM EST History and Physical Notes * [...] Normal Psychiatry Normal OROPHARYNX Normal SINUSES Normal [employer]
--- OUTSIDE RECORDS SUMMARY | 2024-11-01 11:46 | XMS_ITS | Clinical Summary ---
Author Organization [facility] Address [address] [place] [address] Care Team Providers Care Loan Operations Manager Name Role Phone Edilson Ohara MD Primary Care Provider [phone] Allergies No known active allergies Medications Medication Sig Dispensed Refills Start Date End Date Status aspirin 81 MG EC tablet 1 tablet 0 Active atorvastatin (LIPITOR) tablet 40 mg 1 tablet 0 11/13/2018 Active diazePAM (VALIUM) tablet 5 mg 1 tablet daily and 2nd pill if needed 0 01/06/2018 Active metoprolol succinate (TOPROL-XL) 24 hr tablet 25 mg TAKE 1/2 TABLET BY MOUTH ONCE DAILY 0 Active nitroglycerin (NITROSTAT) 0.[address] 1 TAB UNDER THE TONGUE FOR CHEST PAIN 0 12/26/2019 Active lisinopril (PRINIVIL,ZESTRIL) tablet 5 mg Take 1 tablet (5 mg total) by mouth daily. 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 CAD (coronary artery disease) 02/19/2011 Social History Tobacco Use Types Packs/Day Years Used Date Smoking Tobacco: Never Assessed Sex and Gender Information Value Date Recorded Sex Assigned at Not on file Gender Identity Not on file Sexual Orientation Not on file Job Start Date Occupation Industry Not on file Not on file Not on file Last Filed Vital Signs Vital Sign Reading Time Taken Comments Blood Pressure 163/57 01/28/2024 11:04 AM EDT Pulse 52 01/28/2024 11:04 AM EDT Temperature 36.3 ??C (97.4 ??F) 01/28/2024 11:04 AM E DT Respiratory Rate - - Oxygen Saturation 100% 01/28/2024 11:04 AM EDT Inhaled Oxygen Concentration - - Weight 94.5 kg (208 lb 6.4 oz) 01/28/2024 11:04 AM EDT Height 177.8 cm (5' 10 ) 01/28/2024 11:04 AM EDT Body Mass Index 29.9 01/28/2024 11:04 AM EDT Plan of Treatment Health Maintenance Due Date Last Done Comments COVID-19 Vaccine (#1) 1940 Pneumococcal Vaccine (1 of 2 - PCV) 01/23/1948 Depression Screening 1954 Preventative Health Evaluation 01/23/1960 DTap / Tdap / Td (1 - Tdap) 1961 Shingrix-Zoster Vaccine (1 of 2) 01/23/1992 Fall Risk Assessment 2007 RSV Adult > 60+ Yrs or Pregn ant (1 - 1-dose 75+ series) 2017 Influenza Vaccine (#1) 2024 Hepatitis B Vaccines Aged Out No long er eligible based on patient's age to complete this topic RSV Ped < 20 months Aged Out No longe r eligible based on patient's age to complete this topic Care Teams Loan Operations Manager Relationship Specialty Start Date End Date Edilson Ohara MD [address] [place] [address] PCP - General Internal Medicine 01/12/20
--- OUTSIDE RECORDS SUMMARY | 2024-11-01 11:46 | XMS_ITS ---
Author Organization [facility] Address [address] [facility] [address] [place] [address] Care Team Providers Care Head Of Precision Targeting Name Role Phone KRISS CARRERA Primary Care Provider [phone] REASON FOR VISIT RE:lab work Encounters Encounter Location Date Provider Diagnosis [facility] [address] [facility] [address] [place] [address] 08/25/2024 KRISS CARRERA Plan Of Treatment Next Appt Details Provider Name:KRISS CARRERA , 11/14/2024 10:45:00 AM, [address] [facility] [address], [place], [address], Progress Notes * Ehsan PACHECODOB:1940 ( 84 yo M)Acc No.[id number]:08/25/2024 Patient:?hEsan PACHECO :1940???Age:84 Y???Sex:Male Address:[address] [place] [address] * true * Date:? Generated for Printi geovani/Surya/eTransmitting on:?11/01/2024 11:45 AM EST
--- OUTSIDE RECORDS SUMMARY | 2024-11-01 11:46 | XMS_ITS ---
Author Organization [facility] Address [address] [facility] [address] [place] [address] Care Team Providers Care Litharge Supervisor Name Role Phone DEANDREBRITTANYMONTERROSO Primary Care Provider [phone] Results Component Value Reference Range Notes Iron-[id number] Reviewed date:08/25/2024 08:24:54 AM Interpretation: Performing Lab:[facility], [address] [place] [address], Phone - [phone], Director - Soly Notes/Report: Iron 205 38-169 ug/dL Ferritin-643556 Reviewed date:08/25/2024 08:24:52 AM Interpretation: Performing Lab:[facility], [address] [place] [address], [place], Phone - [phone], Director - MDJodry Notes/Report: Ferritin 343 30-400 ng/mL CBC With Differential/Platel et-601906 Reviewed date:08/25/2024 08:24:43 AM Interpretation: Performing Lab:[facility], [address] [facility], [place], Phone - [phone], Director - MDJodry Notes/Report: WBC 5.3 3.4-10.8 [...] Immature Grans (Abs) 0.0 0.0-0.1 x10E3/uL Lipid Panel-777750 Reviewed date:08/25/2024 08:24:48 AM Interpretation: Performing Lab:[facility], [address] [facility], Phone - [phone], Director - MDJodry Notes/Report: Cholesterol, Total 137 100-199 mg/dL Triglycerides 209 0-149 mg/dL HDL Cholesterol 35 >39 mg/dL VLDL Cholesterol Logan 35 5-40 mg/dL LDL Chol Calc (NIH) 67 0-99 mg/dL Comp. Metabolic Panel (14)-[id number] Reviewed date:08/25/2024 08:24:45 AM Interpretation: Performing Lab:[facility], [address] [facility], [place], Phone - [phone], Director - MDJodry Notes/Report: Glucose 99 70-99 [...] up Encounters Encounter Location Date Provider Diagnosis [facility] [address] [facility] [address] [place] [address] 08/21/2024 KRISS CARRERA Essential (primary) hypertension I10 ; Mixed hyperlipidemia E78.2 and Iron deficiency E61.1 Assessments Encounter Date Diagnosis (ICD Code) Assessment Notes Treatment Notes Treatment Clinical Notes Section Notes 08/21/2024 Essential (primary) hypertension (ICD-10 - I10) 08/21/2024 Mixed hyperlipidemia (ICD-10 - E78.2) 08/21/2024 Iron deficiency (ICD-10 - E61.1) Plan Of Treatment Pending Test Test Name Order Date Albumin/Creatinine Ratio,Urine-460642 Next Appt Details Provider Name:KRISS CARRERA , 11/14/2024 10:45:00 AM, [address] [place] [address] [address], [place], [address], Progress Notes * Ehsan PACHECODOB:1940 ( 84 yo M)Acc No.[id number]:08/21/2024 Patient:?Ehsan PACHECO :1940???Age:84 Y???Sex:Male Address:[address] [place] [address] [place] [address] Subjective: * Chief Complaints: * ???Labwork follow up * Medical History:? * Surgical History:? * Hospitalization/Major Diagno stic Procedure:? * Medications:? Objective: * Vitals:? * Physical Examination:? Assessment: * Assessment: 1.?Essential (primary) hyper tension - I10???2.?Mixed hyperlipidemia - E78.2???3.?Iron deficiency - E61.1??? Plan: * Treatment: 2.?Mixed hyperlipidemia?LAB: Iron-334462 ?LAB: Ferritin-124216 ?LAB: CBC With Differential/Platelet-249605 ?LAB: Albumin/Creatinine Ratio,Urine-024132 ?LAB: Lipid Panel-338979 ?LAB: Comp. Metabolic Panel ([id number] 3.?Iron deficiency?LAB: Iron-806430 ?LAB: Ferritin-130394 ?LAB: CBC With Differential/Platelet-005214 ?LAB: Albumin/Creatinine Ratio,Urine-191610 ?LAB: Lipid Panel-551444 ?LAB: Comp. Metabolic Panel (72)-[id number] * Procedure Codes:? * true * Date:? Generated for Blanka olivo/Surya/eTransmitting on:?11/01/2024 11:45 AM EST
== END 2024-11-01 09:55 | disposition home or self-care (01) ==
LOC: HO.BBR 09:54
PROVIDERS: PCP Hospitalist; Visit Provider Internal Medicine
DX: Z13.89 Encounter for screening for other disorder (principal)

== ENCOUNTER 2025-01-31 09:55 | Outpatient (REF) | payer MEDICARE, SELFPAY ==
--- OUTSIDE RECORDS SUMMARY | 2025-01-31 10:46 | XMS_ITS | Patient Health Record ---
Author Organization [facility] Address [address] [place] [address] Care Team Providers Care Inside Phone Sales Name Role Phone DEANDRE MONTERROSO Primary Care Provider Cory Almanza Unavailable [phone] Allergies Allergen (clinical drug ingredient) Drug/Non Drug Allergy documented on EMR Reaction Allergy Type Onset Date Status escitalopram Lexapro Unknown Drug Allergy Acti ve paroxetine Paxil Unknown Drug Allergy Active sertraline Zoloft Unknown Drug Allergy Active Results Component Value Reference Range Notes IRON AND TIBC Reviewed date:12/16/2024 12:27:18 AM Interpretation: Performing Lab: Notes/Report: Iron 183 50-160 mcg/dL TIBC 218 250-450 mcg/dL Iron Saturation 84 20-50 % COMPREHENSIVE METABOLIC PANE L Reviewed date:12/18/2024 12:52:49 AM Interpretation: Performing Lab: Notes/Report: Sodium 138 133-145 mmol/L Potassium 4.3 3.5-5.5 mmol/L Chloride 104 96-110 mmol/L CO2 31 21-32 mmol/L Anion Gap 3 3-11 Glucose 115 70-100 mg/dL BUN 27 5-25 mg/dL Creatinine 1.14 0.70-1.30 mg/dL eGFR 64 >=60 mL/min/1.73m2 Calculati on based on the?Chronic Kidney Disease Epidemiology Collaboration (CKD-EPI) equation refit?without adjustment for race. BUN/Creatinine Ratio 23.7 Calcium 8.9 8.5-10.5 mg/dL AST (SGOT) 22 10-42 unit/L ALT (SGPT) 34 10-60 unit/L Alkaline Phosphatase 80 42-121 unit/L Total Protein 6.7 6.0-8.0 g/dL Albumin 3.7 3.2-5.0 g/dL Total Bilirubin 0.6 0.0-1.4 mg/dL FERRITIN Reviewed date:12/17/2024 11:36:09 AM Interpretation: Performing Lab: Notes/Report: Ferritin 193 26-388 ng/mL CBC WITH AUTO DIFFERENTIAL Reviewed date:12/17/2024 11:35:59 AM Interpretation: Performing Lab: Notes/Report: WBC 5.9 4.8-10.8 K/mcL RBC 4.20 4.50-5.50 M/mcL Hemoglobin 14.3 13.5-17.5 g/dL Hematocrit 42.2 42.0-54.0 % MCV 100.0 79.0-98.0 FL MCH 33.9 27.0-32.0 pcg MCHC 33.9 32.0-37.0 g/dL RDW 12.4 11.0-15.0 % Platelets 191 130-400 K/mcL MPV 10.7 7.0-11.0 FL NRBC 0.0 <1.0 % NRBC Absolute 0.00 <0.10 K/mcL Neutrophils Relative 59.2 Lymphocytes Relative 25.0 Monocytes Relative 12.2 Eosinophils Relative 2.5 Basophils Relative 0.8 Immature Granulocytes Relative 0.3 Neutrophils Absolute 3.49 1.50-7.00 K/mcL Lymphocytes Absolute 1.48 1.00-5.00 K/mcL Monocytes Absolute 0.72 0.20-1.00 K/mcL Eosinophils Absolute 0.15 0.00-0.50 K/mcL Basophils Absolute 0.05 0.00-0.20 K/mcL Immature Granulocytes Absolute 0.02 0.00-0.03 K/mcL CBC With Differential/Platel et-[id number] Reviewed date:08/25/2024 08:24:43 AM Interpretation: Performing Lab:[facility], [address], [place], Phone - [phone], Director - Casa Notes/Report: WBC 5.3 3.4-10.8 x10E3/uL RBC 4.58 [...] % Immature Grans (Abs) 0.0 0.0-0.1 x10E3/uL Comp. Metabolic Panel ([id number] Reviewed date:08/25/2024 08:24:45 AM Interpretation: Performing Lab:Panda Upton, [facility], Phone - [phone], [facility]Report: Glucose 99 70-99 mg/dL BUN 22 [...] 0-40 IU/L ALT (SGPT) 27 0-44 IU/L Lipid Panel-[id number] Reviewed date:08/25/2024 08:24:48 AM Interpretation: Performing Lab:Panda Upton, [employer] [place], [place], Phone - [phone], Director - Casa Notes/Report: Cholesterol, Total 137 100-199 mg/dL Triglycerides 209 0-149 mg/dL HDL Cholesterol 35 >39 mg/dL VLDL Cholesterol Logan 35 5-40 mg/dL LDL Chol Calc ([facility]) 67 0-99 mg/dL Ferritin-[id number] Reviewed date:08/25/2024 08:24:52 AM Interpretation: Performing Lab:[facility], [facility], Phone - [phone], Director - Casa Notes/Report: Ferritin 343 30-400 ng/mL Iron-[id number] Reviewed date:08/25/2024 08:24:54 AM Interpretation: Performing Lab:[facility], [facility], [place], Phone - [phone], Director - Casa Notes/Report: Iron 205 38-169 ug/dL Reason For Referral No Information Medications Medication SIG (Take, Route, Frequency, Duration) Notes Start Date End Date Status Metoprolol Tartrate 25 MG TAKE 1/2 TABLE T TWICE A DAY WITH FOOD for 90 days Active diazePAM 5 MG TAKE 1 TABLET BY SANDRA TH EVERY DAY for 30 01/15/2025 Active Lisinopril 10 MG TAKE 1 TABLET BY SANDRA TH EVERY DAY FOR 90 DAYS Orally Once a day for 90 days Active Nitroglycerin 0.4 MG as directed Subling ual as needed for chest pain for 90 days Active Atorvastatin Calcium 40 MG TAKE 1 TABLET BY MOUTH EVERY DAY FOR 90 DAYS for 90 Active Probiotic - as directed Orally o nce a day Active Fish Oil 1000 MG 1 capsule Orally Onc e a day for 30 day(s) Active Gabapentin 100 MG 1 capsule Orally Onc e a day Active Aspirin Adult Low Strength 81 MG 1 tablet Orally Once a day for 30 day(s) Active Immunizations Vaccine Route Administration Date Status [...] W/U Status Risk Notes Problem Mixed hyperlipidemia (403342055) Mixed hyperlipidemia (E78.2) Active confirmed Problem Hemochromatosis (182336085) Hemochromatosis, unspecified (E83.119) Active confirmed Problem Generalized anxiety disorder (38612110) Generalized anxiety disorder (F41.1) Active confirmed Problem Cataract (disorder) (316587381) Cataract in diseases classified elsewhere (H28) Active confirmed Problem Hearing loss (18163288) Unspecified hearing loss, unspecified ear (H91.90) Active confirmed Problem 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 (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) Active confirmed Problem Pain co-occurrent and due to varicose veins of bilateral legs (72302386431160264) Varicose veins of bilateral lower extremities with pain (I83.813) Active confirmed Problem Gastro-esophageal reflux disease without esophagitis (068920529) Gastro-esophageal reflux disease without esophagitis (K21.9) Active confirmed Problem Lumbosacral radiculopathy (4993289) Radiculopathy, lumbosacral region (M54.17) Active confirmed Problem Solitary pulmona ry nodule (R91.1) Active confirmed Problem Adult health examination (021869954) Encounter for general adult medical examination without abnormal findings (Z00.00) Active confirmed Problem History of cataract extraction (279817283) Cataract extraction status, right eye (Z98.41) Active confirmed Problem Essential hypertension (93509294) Essential (primary) hypertension (I10) Active confirmed Problem Bradycardia (36539373) Bradycardia, unspecified (R00.1) Active confirmed Vital Signs Heart Rate 65 /min 11/14/2024 Temperature 96.3 degrees Fahrenheit 11/14/2024 Blood pressure diastolic 74 mm Hg 11/14/2024 Oximetry 99 % 11/14/2024 Height 68.62 in 11/14/2024 Blood pressure systolic 130 mm Hg 11/14/2024 Weight 204 lbs 11/14/2024 BMI 30.46 kg/m2 11/14/2024 Encounters Encounter Location Date Provider Diagnosis [address] [place] [address] 02/22/2024 MONTERROSO GUL Generalized anxiety disorder F41.1 ; Atherosclerosis of coronary artery bypass graft(s) without angina pectoris I25.810 ; Essential (primary) hypertension I10 and Mixed hyperlipidemia E78.[address] [place] [address] 03/17/2024 Ghadeer Mazloum Headache, unspecifie d R51.[address] [place] [address] 05/24/2024 MONTERROSO GUL Generalized anxiety disorder F41.1 and Essential (primary) hypertension I10 [address] [place] [address] 08/23/2024 MONTERROSO GUL Essential (primary) hypertension I10 ; Mixed hyperlipidemia E78.2 ; Gastro-esophageal reflux disease without esophagitis K21.9 ; Atherosclerosis of coronary artery bypass graft(s) without angina pectoris I25.810 ; Generalized anxiety disorder F41.1 and Hemochromatosis, unspecified E83.[address] [place] [address] 11/14/2024 MONTERROSO GUL Essential (primary) hypertension I10 ; Generalized anxiety disorder F41.1 ; Mixed hyperlipidemia E78.2 ; Gastro-esophageal reflux disease without esophagitis K21.9 ; Atherosclerosis of coronary artery bypass graft(s) without angina pectoris I25.810 and Hemochromatosis, unspecified E83.[address] [place] [address] 08/21/2024 MONTERROSO GUL Essential (primary) hypertension I10 ; Mixed hyperlipidemia E78.2 and Iron deficiency E61.[address] [place] [address] 08/25/2024 KRISS CARRERA Assessments Encounter Date Diagnosis (ICD Code) Assessment Notes Treatment Notes Treatment Clinical Notes Section Notes 03/17/2024 Headache, unspecified (ICD-10 - R51.9) Mr. [...] with the above mentioned assessment and plan 05/24/2024 Generalized anxiety disorder (ICD-10 - F41.1) [...] every 3 months and he sees Dr. Encarnacion General health concerns discussed with patient. Scribe services used to formulate this note under HIPAA compliance and under [place] law mandated for scribe services. Patient aware [...] every 3 months and he sees Dr. Encarnacion General health concerns discussed with patient. Scribe services used to formulate this note under HIPAA compliance and under [place] law mandated for scribe services. Patient aware of service. Verbal consent and written consent taken from the patient. Patient understands and verbalizes understanding of the scribes services and all questions answered regarding scribes services. Patient agrees to use of scribes services. 08/21/2024 Essential (primary) hypertension (ICD-10 - I10) [...] next appointment. Hemochromatosis. He follows up with raveler and have intermittent phlebotomies Coronary artery disease. He is stable and he is on the right medications. Screening blood work before next appointment 11/14/2024 Generalized anxiety disorder (ICD-10 - F41.1) Ehsan [...] next appointment. Hemochromatosis. He follows up with raveler and have intermittent phlebotomies Coronary artery disease. He is stable and he is on the right medications. Constipation. Advised to use qdqf-pec-paeojnc psyllium husk or Colace tablets and appropriate hydration. Screening blood work before next appointment 11/14/2024 Essential (primary) hypertension (ICD-10 - I10) Ehsan [...] next appointment. Hemochromatosis. He follows up with raveler and have intermittent phlebotomies Coronary artery disease. He is stable and he is on the right medications. Constipation. Advised to use uvgd-ywv-iqysxlh psyllium husk or Colace tablets and appropriate hydration. Screening blood work before next appointment 11/14/2024 Mixed hyperlipidemia (ICD-10 - E78.2) Ehsan is [...] next appointment. Hemochromatosis. He follows up with raveler and have intermittent phlebotomies Coronary artery disease. He is stable and he is on the right medications. Constipation. Advised to use jgax-sur-zudptsk psyllium husk or Colace tablets and appropriate hydration. Screening blood work before next appointment 08/21/2024 Mixed hyperlipidemia (ICD-10 - E78.2) 08/23/2024 Mixed hyperlipidemia (ICD-10 - E78.2) Ehsan [...] next appointment. Hemochromatosis. He follows up with raveler and have intermittent phlebotomies Coronary artery disease. He is stable and he is on the right medications. Screening blood work before next appointment 02/22/2024 Atherosclerosis of coronary artery bypass graft(s) [...] every 3 months [address] he sees [address] Encarnacion General health concerns discussed with patient. Scribe services used to formulate this note under HIPAA compliance and under [place] law mandated for scribe services. Patient aware [...] every 3 months and he sees Dr. Encarnacion General health concerns discussed with patient. Scribe services used to formulate this note under HIPAA compliance and under [place] law mandated for scribe services. Patient aware of service. Verbal consent and written consent taken from the patient. Patient understands and verbalizes understanding of the scribes services and all questions answered regarding scribes services. Patient agrees to use of scribes services. 08/21/2024 Iron deficiency (ICD-10 - E61.1) 02/22/2024 Essential (primary) hypertension (ICD-10 - I10) [...] every 3 months and he sees Dr. Encarnacion General health concerns discussed with patient. Scribe services used to formulate this note under HIPAA compliance and under [place] law mandated for scribe services. Patient aware of service. Verbal consent and written consent taken from the patient. Patient understands and verbalizes understanding of the scribes services and all questions answered regarding scribes services. Patient agrees to use of scribes services. 08/23/2024 Gastro-esophageal reflux disease without esophagitis (ICD-10 [...] next appointment. Hemochromatosis. He follows up with raveler and have intermittent phlebotomies Coronary artery disease. He is stable and he is on the right medications. Screening blood work before next appointment 11/14/2024 Gastro-esophageal reflux disease without esophagitis (ICD-10 - [...] next appointment. Hemochromatosis. He follows up with raveler and have intermittent phlebotomies Coronary artery disease. He is stable and he is on the right medications. Constipation. Advised to use unuj-gyb-kcmpcsc psyllium husk or Colace tablets and appropriate hydration. Screening blood work before next appointment 08/23/2024 [...] next appointment. Hemochromatosis. He follows up with raveler and have intermittent phlebotomies Coronary artery disease. He is stable and he is on the right medications. Screening blood work before next appointment 11/14/2024 Atherosclerosis of coronary artery bypass graft(s) without [...] next appointment. Hemochromatosis. He follows up with raveler and have intermittent phlebotomies Coronary artery disease. He is stable and he is on the right medications. Constipation. Advised to use htsk-tcv-bfnwani psyllium husk or Colace tablets and appropriate hydration. Screening blood work before next appointment 02/22/2024 [...] every 3 [address] sees [address] Encarnacion General health concerns discussed with patient. Scribe services used to formulate this note under HIPAA compliance and under [place] law mandated for scribe services. Patient aware of service. Verbal consent and written consent taken from the patient. Patient understands and verbalizes understanding of the scribes services and all questions answered regarding scribes services. Patient agrees to use of scribes services. 11/14/2024 Hemochromatosis, unspecified (ICD-10 - E83.119) Ehsan is [...] next appointment. Hemochromatosis. He follows up with raveler and have intermittent phlebotomies Coronary artery disease. He is stable and he is on the right medications. Constipation. Advised to use xvji-uzm-kfhzvvg psyllium husk or Colace tablets and appropriate hydration. Screening blood work before next appointment 08/23/2024 [...] next appointment. Hemochromatosis. He follows up with raveler and have intermittent phlebotomies Coronary artery disease. [...] next appointment. Hemochromatosis. He follows up with raveler and have intermittent phlebotomies Coronary artery disease. He is stable and he is on the right medications. Screening blood work before next appointment Plan Of Treatment Pending Test Test Name Order Date Ultrasound : Doppler : Veins Leg Left CBC (COMPLETE BLOOD COUNT) 05/21/2022 FERRITIN 05/21/2022 IRON & TIBC 05/21/2022 Albumin/Creatinine Ratio,Urine-[id number] Future Test Test Name Order Date CBC With Differential/Platelet-[id number] Albumin/Creatinine Ratio,Urine-[id number] Lipid Panel-[id number] 08/23/2024 Comp. Metabolic Panel [id number] 2023 Next Appt Details Provider Name:KRISS CARRERA , 02/12/2025 09:45:00 AM, [address] [place] [address], [id number], Insurance Providers Payer Name Payer Address Payer Phone Subscriber Number Group Number Insured Name Patient Relationship to Insured Coverage Start Date Coverage End Date [facility] [address] [place] [address] [id number] Ehsan Pacheco Self - patient is the insured Medical (General) History Medical History History ICD Code Anxiety disorder, unspecified F41.9 Atherosclerotic heart diseas e of [place] coronary artery without angina pectoris I25.10 Benign prostatic hyperplasia without low er urinary tract symptoms N40.0 Diverticulosis of intestine, part unspecified, without perforation or abscess without bleeding K57.90 Hyperlipidemia, unspecified E78.5 Other terminal manager (current) drug therapy Z 79.899 Gastro-esophageal reflux disease without esophagitis K21.9 Personal history of other benign neoplas m Z86.018 Essential (primary) hypertension I10 Bilateral hearing loss and uses hearing aids Hereditary hemochromatosis, 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
== END 2025-01-31 09:56 | disposition home or self-care (01) ==
LOC: HO.BBR 09:55
PROVIDERS: PCP Hospitalist; Visit Provider Internal Medicine
DX: Z13.89 Encounter for screening for other disorder (principal)

== ENCOUNTER 2025-05-03 10:00 | Outpatient (REF) | payer MEDICARE, SELFPAY ==
--- OUTSIDE RECORDS SUMMARY | 2025-05-03 11:11 | XMS_ITS | Clinical Summary ---
Author Organization [facility] Address [address] [place] [id number] Care Team Providers Care Residential Building Inspector Name Role Phone Edilson Ohara MD Primary Care Provider [phone] Allergies No known active allergies Medications Medication [...] nodule 01/11/2020 Coronary artery disease invo lving [place] coronary artery of [place] heart without angina pectoris 01/11/2020 Gastro-esophageal reflux [...] 52 01/28/2024 11:04 AM EDT Temperature 36.3 C (97.4 F) 01/28/2024 11:04 AM EDT Respiratory Rate - - Oxygen Saturation 100% [...] 1-dose 75+ series) 2017 Influenza Vaccine (#1) 2025 Hepatitis B Vaccines Aged Out No long er eligible based on patient's age to complete this topic RSV Ped < 20 months Aged Out No longe r eligible based on patient's age to complete this topic Care Teams Residential Building Inspector Relationship Specialty Start Date End Date Edilson Ohara MD [address] [place] [address] PCP - General Internal Medicine 01/12/20
--- OUTSIDE RECORDS SUMMARY | 2025-05-03 11:11 | XMS_ITS | Patient Health Record ---
Author Organization [employer] Address [address] [facility] [address] [place] [address] Care Team Providers Care Gifted Program Teacher Name Role Phone SOWMYA CARRERAMONTERROSO Primary Care Provider Allergies Allergen (clinical drug [...] K/mcL Immature Granulocytes Absolute 0.02 0.00-0.03 K/mcL Comp. Metabolic Panel ([id number] Reviewed date:08/25/2024 08:24:45 AM Interpretation: Performing Lab:[facility], [address], [place], Phone - [phone], Director - Casa Notes/Report: Glucose 99 70-99 mg/dL BUN 22 [...] IU/L ALT (SGPT) 27 0-44 IU/L Lipid Panel-[id number] Reviewed date:08/25/2024 08:24:48 AM Interpretation: Performing Lab:[facility] [place], [address] [facility], [place], Phone - [phone], Director - MDAlireza Notes/Report: Cholesterol, Total 137 100-199 mg/dL Triglycerides 209 0-149 mg/dL HDL Cholesterol 35 >39 mg/dL VLDL Cholesterol Logan 35 5-40 mg/dL LDL Chol Calc ([facility]) 67 0-99 mg/dL CBC With Differential/Platel et-[id number] Reviewed date:08/25/2024 08:24:43 AM Interpretation: Performing Lab:[facility] [place], [address] [facility], [place], Phone - [phone], Director - MDAlireza Notes/Report: WBC 5.3 3.4-10.8 x10E3/uL RBC 4.58 [...] % Immature Grans (Abs) 0.0 0.0-0.1 x10E3/uL Ferritin-[id number] Reviewed date:08/25/2024 08:24:52 AM Interpretation: Performing Lab:[facility] [place], [address] [facility], [place], Phone - [phone], Director - Casa Notes/Report: Ferritin 343 30-400 ng/mL Iron-[id number] Reviewed date:08/25/2024 08:24:54 AM Interpretation: Performing Lab:[facility] [place], [address], [place], Phone - [phone], Director - Casa Notes/Report: Iron 205 38-169 ug/dL Reason For Referral No Information Medications Medication SIG (Take, Route, Frequency, Duration) Notes Start Date End Date Status Fish Oil 1000 MG 1 capsule Orally Onc e a day; Duration: 30 day(s) Active Probiotic - as directed Orally o nce a day Active Nitroglycerin 0.4 MG as directed Subling ual as needed for chest pain; Duration: 90 days Active Metoprolol Tartrate 25 MG TAKE 1/2 TABLE T TWICE A DAY WITH FOOD; Duration: 90 days Active Lisinopril 10 MG TAKE 1 TABLET BY SANDRA TH EVERY DAY FOR 90 DAYS Orally Once a day; Duration: 90 days Active Atorvastatin Calcium 40 MG TAKE 1 TABLET BY MOUTH EVERY DAY; Duration: 90 Active Aspirin Adult Low Strength 81 MG 1 tablet Orally Once a day; Duration: 30 day(s) Active diazePAM 5 MG TAKE 1 TABLET BY SANDRA TH EVERY DAY; Duration: 30 03/16/2025 Active Gabapentin 100 MG 1 capsule Orally [...] W/U Status Risk Notes Problem Mixed hyperlipidemia (650934755) Mixed hyperlipidemia (E78.2) Active confirmed Problem Hemochromatosis (442221286) Hemochromatosis, unspecified (E83.119) Active confirmed Problem Generalized anxiety disorder (25700945) Generalized anxiety disorder (F41.1) Active confirmed Problem Cataract (disorder) (059476184) Cataract in diseases classified elsewhere (H28) Active confirmed Problem Hearing loss (17435155) Unspecified hearing loss, unspecified ear (H91.90) Active confirmed Problem 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 (107762092) 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) Active confirmed Problem Pain co-occurrent and due to varicose veins of bilateral legs (34092032977800574) Varicose veins of bilateral lower extremities with pain (I83.813) Active confirmed Problem Gastro-esophageal reflux disease without esophagitis (014648724) Gastro-esophageal reflux disease without esophagitis (K21.9) Active confirmed Problem Lumbosacral radiculopathy (9219332) Radiculopathy, lumbosacral region (M54.17) Active confirmed Problem Solitary pulmonary nodule (926631982) Solitary pulmonary nodule (R91.1) Active confirmed Problem Adult health examination (804280509) Encounter for general adult medical examination without abnormal findings (Z00.00) Active confirmed Problem History of cataract extraction (257465862) Cataract extraction status, right eye (Z98.41) Active confirmed Problem Essential hypertension (53486290) Essential (primary) hypertension (I10) Active confirmed Problem Bradycardia (44415428) Bradycardia, unspecified (R00.1) Active confirmed Vital Signs Heart Rate 53 /min 02/12/2025 Temperature 97.2 degrees Fahrenheit 02/12/2025 Blood pressure diastolic 80 mm Hg 02/12/2025 Oximetry 97 % 02/12/2025 Height 68.62 in 02/12/2025 Blood pressure systolic 122 mm Hg 02/12/2025 Weight 205 lbs 02/12/2025 BMI 30.61 kg/m2 02/12/2025 Encounters Encounter Location Date Provider Diagnosis [address] [place] [address] 05/24/2024 KRISS CARRERA Generalized anxiety disorder F41.1 and Essential (primary) hypertension I10 [address] [place] [address] 08/23/2024 KRISS CARRERA Essential (primary) hypertension I10 ; Mixed hyperlipidemia E78.2 ; Gastro-esophageal reflux disease without esophagitis K21.9 ; Atherosclerosis of coronary artery bypass graft(s) without angina pectoris I25.810 ; Generalized anxiety disorder F41.1 and Hemochromatosis, unspecified E83.[address] [place] [address] 11/14/2024 KRISS CARRERA Essential (primary) hypertension I10 ; Generalized anxiety disorder F41.1 ; Mixed hyperlipidemia E78.2 ; Gastro-esophageal reflux disease without esophagitis K21.9 ; Atherosclerosis of coronary artery bypass graft(s) without angina pectoris I25.810 and Hemochromatosis, unspecified E83.[address] [place] [address] 02/12/2025 KRISS CARRERA Generalized anxiety disorder F41.1 ; Essential (primary) hypertension I10 ; Mixed hyperlipidemia E78.2 ; Gastro-esophageal reflux disease without esophagitis K21.9 ; Atherosclerosis of coronary artery bypass graft(s) without angina pectoris I25.810 and Hemochromatosis, unspecified E83.[address] [place] [address] 08/21/2024 KRISS CARRERA Essential (primary) hypertension I10 ; Mixed hyperlipidemia E78.2 and Iron deficiency E61.[address] [place] [address] 08/25/2024 KRISS CARRERA Assessments Encounter Date Diagnosis [...] next appointment. Hemochromatosis. He follows up with science teacher and have intermittent phlebotomies Coronary artery disease. [...] next appointment. Hemochromatosis. He follows up with science teacher and have intermittent phlebotomies Coronary artery disease. He is stable and he is on the right medications. Constipation. Advised to use frfy-sss-rxxhorx psyllium husk or Colace tablets and appropriate [...] next appointment. Hemochromatosis. He follows up with science teacher and have intermittent phlebotomies Coronary artery disease. He is stable and he is on the right medications. Constipation. Advised to use idjm-tiq-mlbgenp psyllium husk or Colace tablets and appropriate hydration. Screening blood work before next appointment 02/12/2025 Generalized anxiety disorder (ICD-10 - F41.1) Ehsan is 85 years old gentleman with hypertension, hyperlipidemia, generalized anxiety disorder, hemochromatosis, coronary artery disease, degenerative disc disease is here for follow-up.He also complained of flatulence and pedal edema. Plan is as follows Generalized anxiety disorder. [...] next appointment. Hemochromatosis. He follows up with science teacher and have intermittent phlebotomies Coronary artery disease. He is stable and he is on the right medications. Venous insufficiency. Advised low-sodium diet, keep legs elevated and use compression stockings. He is not interested in Lasix. Constipation. Advised to use gjbm-gem-vydazyq psyllium husk or Colace tablets and appropriate hydration.He can also use Gas-X Screening blood work before next appointment 02/12/2025 Essential (primary) hypertension (ICD-10 - I10) Ehsan is 85 years old gentleman with hypertension, hyperlipidemia, generalized anxiety disorder, hemochromatosis, coronary artery disease, degenerative disc disease is here for follow-up.He also complained of flatulence and pedal edema. Plan is as follows Generalized anxiety disorder. [...] next appointment. Hemochromatosis. He follows up with science teacher and have intermittent phlebotomies Coronary artery disease. He is stable and he is on the right medications. Venous insufficiency. Advised low-sodium diet, keep legs elevated and use compression stockings. He is not interested in Lasix. Constipation. Advised to use ewck-kzc-bdupfgj psyllium husk or Colace tablets and appropriate hydration.He can also use Gas-X Screening blood work before next appointment 05/24/2024 [...] this note under HIPAA compliance and under [place] law mandated for scribe services. Patient aware [...] this note under HIPAA compliance and under [place] law mandated for scribe services. Patient aware of service. Verbal consent and written consent taken from the patient. Patient understands and verbalizes understanding of the scribes services and all questions answered regarding scribes services. Patient agrees to use of scribes services. 02/12/2025 Mixed hyperlipidemia (ICD-10 - E78.2) Ehsan is 85 years old gentleman with hypertension, hyperlipidemia, generalized anxiety disorder, hemochromatosis, coronary artery disease, degenerative disc disease is here for follow-up.He also complained of flatulence and pedal edema. Plan is as follows Generalized anxiety disorder. [...] next appointment. Hemochromatosis. He follows up with science teacher and have intermittent phlebotomies Coronary artery disease. He is stable and he is on the right medications. Venous insufficiency. Advised low-sodium diet, keep legs elevated and use compression stockings. He is not interested in Lasix. Constipation. Advised to use yrdy-jmc-vrbxqpc psyllium husk or Colace tablets and appropriate hydration.He can also use Gas-X Screening blood work before next appointment 11/14/2024 [...] next appointment. Hemochromatosis. He follows up with science teacher and have intermittent phlebotomies Coronary artery disease. He is stable and he is on the right medications. Constipation. Advised to use leln-hac-hmsleks psyllium husk or Colace tablets and appropriate [...] next appointment. Hemochromatosis. He follows up with science teacher and have intermittent phlebotomies Coronary artery disease. He is stable and he is on the right medications. Screening blood work before next appointment 08/21/2024 Iron deficiency (ICD-10 - E61.1) 08/23/2024 [...] next appointment. Hemochromatosis. He follows up with science teacher and have intermittent phlebotomies Coronary artery disease. [...] next appointment. Hemochromatosis. He follows up with science teacher and have intermittent phlebotomies Coronary artery disease. He is stable and he is on the right medications. Constipation. Advised to use bqzs-tny-eljmxus psyllium husk or Colace tablets and appropriate hydration. Screening blood work before next appointment 02/12/2025 Gastro-esophageal reflux disease without esophagitis (ICD-10 - K21.9) Ehsan is 85 years old gentleman with hypertension, hyperlipidemia, generalized anxiety disorder, hemochromatosis, coronary artery disease, degenerative disc disease is here for follow-up.He also complained of flatulence and pedal edema. Plan is as follows Generalized anxiety disorder. [...] next appointment. Hemochromatosis. He follows up with science teacher and have intermittent phlebotomies Coronary artery disease. He is stable and he is on the right medications. Venous insufficiency. Advised low-sodium diet, keep legs elevated and use compression stockings. He is not interested in Lasix. Constipation. Advised to use hrne-cys-thzpndk psyllium husk or Colace tablets and appropriate hydration.He can also use Gas-X Screening blood work before next appointment 02/12/2025 Atherosclerosis of coronary artery bypass graft(s) without angina pectoris (ICD-10 - I25.810) Ehsan is 85 years old gentleman with hypertension, hyperlipidemia, generalized anxiety disorder, hemochromatosis, coronary artery disease, degenerative disc disease is here for follow-up.He also complained of flatulence and pedal edema. Plan is as follows Generalized anxiety disorder. [...] next appointment. Hemochromatosis. He follows up with science teacher and have intermittent phlebotomies Coronary artery disease. He is stable and he is on the right medications. Venous insufficiency. Advised low-sodium diet, keep legs elevated and use compression stockings. He is not interested in Lasix. Constipation. Advised to use jnwj-ycg-qzawuef psyllium husk or Colace tablets and appropriate hydration.He can also use Gas-X Screening blood work before next appointment 08/23/2024 [...] next appointment. Hemochromatosis. He follows up with science teacher and have intermittent phlebotomies Coronary artery disease. [...] next appointment. Hemochromatosis. He follows up with science teacher and have intermittent phlebotomies Coronary artery disease. He is stable and he is on the right medications. Constipation. Advised to use teju-ctv-dvhfnqv psyllium husk or Colace tablets and appropriate hydration. Screening blood work before next appointment 11/14/2024 Hemochromatosis, unspecified (ICD-10 - E83.119) Ehsan [...] next appointment. Hemochromatosis. He follows up with science teacher and have intermittent phlebotomies Coronary artery disease. He is stable and he is on the right medications. Constipation. Advised to use difw-dql-pjnxpfs psyllium husk or Colace tablets and appropriate [...] next appointment. Hemochromatosis. He follows up with science teacher and have intermittent phlebotomies Coronary artery disease. He is stable and he is on the right medications. Screening blood work before next appointment 02/12/2025 Hemochromatosis, unspecified (ICD-10 - E83.119) Ehsan is 85 years old gentleman with hypertension, hyperlipidemia, generalized anxiety disorder, hemochromatosis, coronary artery disease, degenerative disc disease is here for follow-up.He also complained of flatulence and pedal edema. Plan is as follows Generalized anxiety disorder. [...] next appointment. Hemochromatosis. He follows up with science teacher and have intermittent phlebotomies Coronary artery disease. He is stable and he is on the right medications. Venous insufficiency. Advised low-sodium diet, keep legs elevated and use compression stockings. He is not interested in Lasix. Constipation. Advised to use lqxv-xjt-cnhbkzq psyllium husk or Colace tablets and appropriate hydration.He can also use Gas-X Screening blood work before next appointment 08/23/2024 [...] next appointment. Hemochromatosis. He follows up with science teacher and have intermittent phlebotomies Coronary artery disease. He is stable and he is on the right medications. Screening blood work before next appointment Plan Of Treatment Pending Test Test Name Order Date Ultrasound : Doppler : Veins Leg Left CBC (COMPLETE BLOOD COUNT) 05/21/2022 FERRITIN 05/21/2022 IRON & TIBC 05/21/2022 Albumin/Creatinine Ratio,Urine-[id number] Future Test Test Name Order Date CBC With Differential/Platelet-[id number] Albumin/Creatinine Ratio,Urine-[id number] Lipid Panel-[id number] 08/23/2024 Comp. Metabolic Panel [id number] 2023 Next Appt Details Provider Name:KRISS CARRERA , 05/16/2025 10:30:00 AM, [address] [place] [address], [id number], Insurance Providers Payer Name Payer Address Payer Phone Subscriber Number Group Number Insured Name Patient Relationship to Insured Coverage Start Date Coverage End Date [facility] [address] [place] [address] [id number] 1 Ehsan Pacheco Self - patient is the insured Medical (General) History Medical History History ICD Code Anxiety disorder, unspecified F41.9 Atherosclerotic heart diseas e of [place] coronary artery without angina pectoris I25.10 Benign prostatic hyperplasia without low er urinary tract symptoms N40.0 Diverticulosis of intestine, part unspecified, without perforation or abscess without bleeding K57.90 Hyperlipidemia, unspecified E78.5 Other longterm (current) drug therapy Z 79.899 Gastro-esophageal reflux disease without esophagitis K21.9 Personal history of other benign neoplas m Z86.018 Essential (primary) hypertension I10 Bilateral hearing loss and uses hearing aids Hereditary hemochromatosis, 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
--- OUTSIDE RECORDS SUMMARY | 2025-05-03 11:11 | XMS_ITS | Clinical Summary ---
Author Organization [address] Address [address] [place] [address] Phone Care Team Providers Care Placing Judge Name Role Phone Edilson Ohara MD Primary Care Provider [phone] Allergies No known active allergies Medications aspirin 81 mg EC tablet 1 tablet Active atorvastatin (LIPITOR) 40 mg tablet 1 tablet 11/13/2018 Active diazePAM (VALIUM) 5 mg tablet 1 tablet daily and 2nd pill if needed 01/06/2018 Active lisinopriL (PRINIVIL,ZESTR IL) 5 mg tablet Take 1 tablet (5 mg total) by mouth 1 (one) time each day. Active metoprolol succinate (TOPROL-XL) 25 mg 24 hr tablet Take 0.5 tablets (12.5 mg total) by mouth 1 (one) time each day. Active nitroglycerin (NITROSTAT) 0.[address] 1 TAB UNDER THE TONGUE FOR CHEST PAIN 12/26/2019 Active Active Problems Problem Noted Date Diagnosed Date Multiple lung nodules 01/10/2021 Coronary artery disease invo lving seminole coronary artery of seminole heart without angina pectoris 01/11/2020 Essential hypertension 01/11/2020 Lumbosacral radiculopathy 01/11/2020 Solitary pulmonary nodule 01/11/2020 Gastro-esophageal reflux disease without esophag itis 01/12/2019 Hereditary hemochromatosis (CMS/HCC V24) 017 CAD (coronary artery disease) 02/19/2011 Social History Tobacco Use Types Packs/Day Years Used Date Smoking Tobacco: Former Cigarettes Comments:QUIT AGE 64 Alcohol Use Standard Drinks/Week Comments Not Currently 0 (1 standard drink = 0.6 oz pur e alcohol) Sex and Gender Information Value Date Recorded Sex Assigned at Not on file Legal Sex Male 10:00 PM EST Gender Identity Not on file Sexual Orientation Not on file Obstetrics History Last Filed Vital Signs Vital Sign Reading Time Taken Comments Blood Pressure 150/51 01/08/2025 11:11 AM EDT Pulse 50 01/08/2025 11:11 AM EDT Temperature 36.5 C (97.7 F) 01/08/2025 11:11 AM EDT Respiratory Rate - - Oxygen Saturation 96% 01/08/2025 11:11 AM EDT Inhaled Oxygen Concentration - - Weight 94.4 kg (208 lb 3.2 oz) 01/08/2025 11:11 AM EDT Height 177.8 cm (5' 10 ) 01/08/2025 11:11 AM EDT Body Mass Index 29.87 01/08/2025 11:11 AM EDT Plan of Treatment Upcoming Encounters Date Type Department Care Team (Late st Contact Info) Description 01/09/2026 11:00 AM EDT Office Visit [facility] Hematology Oncology [address] [place] [address] Jarvis Rodriguez MD [address] [place] [phone] Health Maintenance Due Date Last Done Comments DTaP,Tdap,and Td Vaccines (1 - Tdap) 1961 RSV Immunization Adult Patients (1 - 1-dose 75+ series) 2017 Cholesterol Screening (Lipid Panel) 08/14/2022 Falls Risk Assessment 08/14/2022 Medicare Annual Wellness Visit 08/14/2022 Social Influencers of Health Screening 08/14/2022 COVID-19 Vaccine ( season) 2024 07/23/2023, 07/16/2022, 12/26/2021, Additional history exists Depression Screening 09/06/2024 Influenza Vaccine (#1) 2025 , 07/23/2023, 07/03/2022, Additional history exists Hypertension/CHF/CAD Annual BMP Blood Test 12/14/2025 12/14/2024 Pneumococcal Vaccine: 50+ Years Completed 03/23/2024 Zoster Vaccines Completed 07/24/2024, 03/06, 06/03/2020, Additional history exists HIB Vaccines Aged Out No longer eligi ble based on patient's age to complete this topic HPV Vaccines Aged Out No longer eligi ble based on patient's age to complete this topic Hepatitis A Vaccines Aged Out No long er eligible based on patient's age to complete this topic Hepatitis B Vaccines Aged Out No long er eligible based on patient's age to complete this topic IPV Vaccines Aged Out No longer eligi ble based on patient's age to complete this topic MMR Vaccines Aged Out No longer eligi ble based on patient's age to complete this topic Meningococcal ACWY Vaccine Aged Out N o longer eligible based on patient's age to complete this topic Meningococcal B Vaccine Aged Out No l onger eligible based on patient's age to complete this topic RSV Immunization Patients Under 20 months Aged Out No longer eligible based on patient's age to complete this topic Varicella Vaccines Aged Out No longer eligible based on patient's age to complete this topic Procedures Procedure Name Priority Date/Time Associated Diagnosis Comments COMPREHENSIVE METABOLIC PANEL Routine 12/14/2024 2:21 PM EDT Hereditary hemochromatosis (CMS/HCC V24) from Last 3 Months or Most Recently Relevant to Health Maintenance Results * (ABNORMAL) Comprehensive metabolic panel (12/14/2024 2:21 PM EDT) Sodium 138 133 - 145 mmol/L LAB CHEMISTRY METHOD 12/14/2024 5:23 PM [facility] Potassium 4.3 3.5 - 5.5 mmol/L LAB CHEMISTRY METHOD 12/14/2024 5:23 PM [facility] Chloride 104 96 - 110 mmol/L LAB CHEMISTRY METHOD 12/14/2024 5:23 PM [facility] CO2 31 21 - 32 mmol/L LAB CHEMISTRY METHOD 12/14/2024 5:23 PM [facility] Anion Gap 3 3 - 11 LAB CHEMISTRY METHOD 12/14/2024 5:23 PM [facility] Glucose 115(H) 70 - 100 mg/dL LAB CHEMISTRY METHOD 12/14/2024 5:23 PM [facility] BUN 27(H) 5 - 25 mg/dL LAB CHEMISTRY METHOD 12/14/2024 5:23 PM [facility] Creatinine 1.14 0.70 - 1.30 mg/dL LAB CHEMISTRY METHOD 12/14/2024 5:23 PM [facility] eGFR 64 >=60 mL/min/1. 73m2 LAB CHEMISTRY METHOD 12/14/2024 5:23 PM [facility] Comment:Calculation based on the Chronic Kidney Disease Epidemiology Collaboration (CKD-EPI) equation refit without adjustment for race. BUN/Creatinine Ratio 23.7 LAB CHEMISTRY METHOD 12/14/2024 5:23 PM [facility] Calcium 8.9 8.5 - 10.5 mg/dL LAB CHEMISTRY METHOD 12/14/2024 5:23 PM [facility] AST (SGOT) 22 10 - 42 unit/L LAB CHEMISTRY METHOD 12/14/2024 5:23 PM [facility] ALT (SGPT) 34 10 - 60 unit/L LAB CHEMISTRY METHOD 12/14/2024 5:23 PM [facility] Alkaline Phosphatase 80 42 - 121 unit/L LAB CHEMISTRY METHOD 12/14/2024 5:23 PM [facility] Total Protein 6.7 6.0 - 8.0 g/dL LAB CHEMISTRY METHOD 12/14/2024 5:23 PM [facility] Albumin 3.7 3.2 - 5.0 g/dL LAB CHEMISTRY METHOD 12/14/2024 5:23 PM [facility] Total Bilirubin 0.6 0.0 - 1.4 mg/dL LAB CHEMISTRY METHOD 12/14/2024 5:23 PM [facility] Blood Venous blood specimen / Unknown Venipuncture / Unknown 12/14/2024 2:21 PM EDT 12/14/2024 2:21 PM EDT Jarvis Rodriguez MD LAB BLOOD ORDERABLE S Final Result [facility] LAB [address] [place] [address], from Last 3 Months or Most Recently Relevant to Health Maintenance Insurance [employer] - [place] MEDICARE [employer]VANTAGE Care Teams Placing Judge Relationship Specialty Start Date End Date Edilson Ohara MD [address] [place] [id number] PCP - General Internal Medicine 09/12/18
== END 2025-05-03 10:01 | disposition home or self-care (01) ==
LOC: HO.BBR 10:00
PROVIDERS: PCP Hospitalist; Visit Provider Internal Medicine
DX: Z13.89 Encounter for screening for other disorder (principal)

== ENCOUNTER 2025-07-25 09:57 | Outpatient (REF) | payer MEDICARE, SELFPAY ==
--- OUTSIDE RECORDS SUMMARY | 2025-07-23 05:30 | XMS_ITS ---
Author Organization [facility] Address [address] [place] [address] Care Team Providers Care Student Life Coordinator Name Role Phone DEANDRE MONTERROSO Primary Care Provider Allergies Allergen (clinical drug ingredient) Drug/Non Drug Allergy documented on EMR Reaction Allergy Type Onset Date Status escitalopram Lexapro Unknown Drug Allergy Acti ve paroxetine Paxil Unknown Drug Allergy Active sertraline Zoloft Unknown Drug Allergy Active REASON FOR VISIT Cataract surg, Dr. Taveras-Nothing needed, Flu vaccine Medications Medication SIG (Take, Route, Frequency, Duration) Notes Start Date End Date Status Probiotic - as directed Orally o nce a day Active Fish Oil 1000 MG 1 capsule Orally Onc e a day; Duration: 30 day(s) Active Nitroglycerin 0.4 MG as directed Subling ual as needed for chest pain; Duration: 90 days Active Metoprolol Tartrate 25 MG TAKE 1/2 TABLE T TWICE A DAY WITH FOOD; Duration: 90 days Active Atorvastatin Calcium 40 MG TAKE 1 TABLET BY MOUTH EVERY DAY; Duration: 90 Active Lisinopril 10 MG TAKE 1 TABLET BY SANDRA TH EVERY DAY; Duration: 90 Active diazePAM 5 MG TAKE 1 TABLET BY SANDRA TH EVERY DAY; Duration: 28 07/17/2025 Active Gabapentin 100 MG 1 capsule Orally Onc e a day Active Aspirin Adult Low Strength 81 MG 1 tablet Orally Once a day; Duration: 30 day(s) Active Immunizations Vaccine Route Administration Date Status Comme nts Fluzone High Dose 62103 IM Intramuscular 07/23/2025 Admini stered Social History Tobacco Use: Social History Observation [...] Points 0 Interpretation Negative Vital Signs Temperature 96.9 degrees Fahrenheit 07/23/20 25 Oximetry 98 % 07/23/2025 Heart Rate 74 /min 07/23/2025 Blood pressure systolic 130 mm Hg 07/23/20 25 Blood pressure diastolic 82 mm Hg 025 Weight 201.9 lbs 07/23/2025 BMI 30.14 kg/m2 07/23/2025 Height 68.62 in 07/23/2025 Encounters Encounter Location Date Provider Diagnosis [facility] [address] [address] 07/23/2025 KRISS CARRERA Encounter for other preprocedural examination Z01.818 and Encounter for immunization Z23 Assessments Encounter Date Diagnosis (ICD Code) Assessment Notes Treatment Notes Treatment Clinical Notes Section Notes 07/23/2025 Encounter for other preprocedural examination (ICD-10 - Z01.818) Mr. Pacheco is an 85-year-old gentleman with BOO, CAD, GERD, hypertension, lumbar radiculopathy and hemochromatosis here for preop physical for cataract surgery. Plan is as follows. Cardiac assessment. Patient can easily do 4 METS. Blood pressure and exam is within normal limits. Pulmonary assessment. Lung exam is normal And procedure under local block NPO on the day of surgery. Take blood pressure medication with a sip of water on the day of surgery Hold NSAIDs and aspirin 5 days before the procedure. Low risk procedure in a low risk patient. No contraindications for the procedure at this point in time 07/23/2025 Encounter for immunization (ICD-10 - Z23) Mr. Pacheco is an 85-year-old gentleman with BOO, CAD, GERD, hypertension, lumbar radiculopathy and hemochromatosis here for preop physical for cataract surgery. Plan is as follows. Cardiac assessment. Patient can easily do 4 METS. Blood pressure and exam is within normal limits. Pulmonary assessment. Lung exam is normal And procedure under local block NPO on the day of surgery. Take blood pressure medication with a sip of water on the day of surgery Hold NSAIDs and aspirin 5 days before the procedure. Low risk procedure in a low risk patient. No contraindications for the procedure at this point in time Plan Of Treatment Next Appt Details Follow Up: next appt, Reason : Provider Name:MONTERROSO A GUL , 10/15/2025 11:00:00 AM, [address] [place] [address] [address], [place], [address], Progress Notes * Ehsan PACHECODOB:1940 ( 85 yo M)Acc No.[id number]:07/23/2025 Progress Note Patient: Ehsan HOLDEN Provider: Carolynn CARRERA MD :1940 A ge:85 Y S ex:Male Date:07/23/2025 Address: [place], [id number] Subjective: * Chief Complaints: * C ataract surg, Dr. Taveras-Nothing neededFlu vaccine * HPI: I nternal Medicine: Mr. Pacheco is an 85-year-old gentleman with BOO, CAD, GERD, hypertension, lumbar radiculopathy and hemochromatosis here for preop physical for cataract surgery. Today he is in his usual state of health. He walks and exercises and does not complain of any exertional chest pain, pressure, shortness of breath. No systemic or constitutional symptoms. H e complains of lower back pain and degenerative disc disease and he had intra-articular/intra-facet injections in the past and he also had nerve ablation in the past. He went to [facility] for nerve ablation with no significant results. He does not have or GI dysfunction. He goes to phlebotomy for his hemochromatosis on regular basis. He is physically active. He lost 10 lbs since last visit. Mood is stable on current regimen. He sleeps well, appetite is good. He denies any other active issues or concerns. * ROS: G eneral/Constitutional: Overall health G ood. C hange in appetite d enies.?Chills d enies. F ever d enies. N ight sweats d enies. S leep disturbance d enies. W eight gain d enies. W eight loss d enies. N eurologic: Difficulty speaking d enies. D izziness d enies.?Gait abnormality d enies. H eadache d enies. L oss of strength d enies. M zenaida loss d enies. S eizures d enies. T ingling/Numbness d enies . O phthalmologic: Blurred vision d enies. D ischarge d enies. D ry eye d enies. R ed eye d enies. E NT: Change in Voice D enies. C old Symptoms D enies.?Cough D enies. D izziness D enies. N parker Congestion D enies. O talgia?Denies. p ostnasal drip D enies. B locked ear d enies. N osebleed d enies. S noring d enies. C ardiovascular: Diaphoresis D enies. P edal Edema D enies. P ND (Paroxsymal nocturnal dyspnea) D enies. C hest pain d enies. D ifficulty laying flat d enies. D yspnea on exertion d enies. H eart murmur d enies. O rthopnea?denies. R espiratory: Snoring d enies. A sthma d enies. C ough d enies. S hortness of breath with exertion d enies. S putum production d enies. W heezing d enies. G astrointestinal: Change in bowel habits d enies. C onstipation d enies. D ecreased appetite d enies. D iarrhea d enies. H eartburn d enies. N ausea d enies. V omiting d enies. M usculoskeletal: tingling/numbness D enies. m yalgias D enies. J oint Swelling D enies. e xtremeties n ormal. A rthritis , admits. B ack problems , admits. Degenerative disc disease. C arpal tunnel d enies. J oint stiffness d enies. M uscle aches d enies.? E ndocrine: Bowel Changes D enies. B reast Discharge D enies.?poor libido D enies. C old intolerance d enies. E xcessive sweating d enies.?Excessive thirst d enies. F requent urination d enies. T hyroid problems d enies. S kin: Bruising D enies. E czema d enies. H air changes d enies. R avis d enies. S kin lesion(s) d enies. P sychiatric: Anxiety d enies. D epressed mood d enies. D ifficulty sleeping d enies. N ervous breakdown d enies. S ubstance abuse d enies.? U rology: abnormal menstrual bleeding d enies. b lood in urine?denies. b urning on urination d enies. d ifficulty urinating d enies. d ischarge d enies. d ysuria d enies. * Medical History: * Surgical History: a ppendectomy cath stent placement [address] Cordova balloon angioplasty lumbar ablation right cataract surgery, Dr. Taveras, [facility] 02/2023 * Hospitalization/Major Diagno stic Procedure: * Family History: F ather: , coronary artery disease. M other: , breast cancer. C hildren: diagnosed with Heart Disease. * Social History: T obacco Use: T obacco Use/Smoking A re you a f ormer smoker H ow long has it been since you last smoked??> 10 years D rugs/Alcohol: D rugs H ave you used drugs other than those for medical reasons in the past 12 months? N o Alcohol Screen (Audit-C) D id you have a drink containing alcohol in the past year? N o P oints 0 I nterpretation N egative M iscellaneous: E xercise: walking almost every day. Marital status: . Occupation: Retired. * Medications: T akingGabapentin 100 MG Capsule 1 capsule Orally Once a day Aspirin Adult Low Strength 81 MG Tablet Delayed Release 1 tablet Orally Once a day Probiotic - Capsule as directed Orally once a day Fish Oil 1000 MG Capsule 1 capsule Orally Once a day Nitroglycerin 0.4 MG Tablet Sublingual as directed Sublingual as needed for chest pain Metoprolol Tartrate 25 MG Tablet TAKE 1/2 TABLET TWICE A DAY WITH FOOD Atorvastatin Calcium 40 MG Tablet TAKE 1 TABLET BY MOUTH EVERY DAY Lisinopril 10 MG Tablet TAKE 1 TABLET BY MOUTH EVERY DAY diazePAM 5 MG Tablet TAKE 1 TABLET [...] Sublingual as needed for chest pain Taking Metoprolol Tartrate 25 MG Tablet TAKE 1/2 TABLET TWICE A DAY WITH FOOD Taking Atorvastatin Calcium 40 MG Tablet TAKE 1 TABLET BY MOUTH EVERY DAY Taking Lisinopril 10 MG Tablet TAKE 1 TABLET BY MOUTH EVERY DAY Taking diazePAM 5 MG Tablet TAKE 1 TABLET BY MOUTH EVERY DAY Medication List reviewed and reconciled with the patient * Allergies: L exapro: AllergyPaxil: AllergyZoloft: Allergyno[Allergies Verified] Objective: * Vitals: T emp: 96.9 F, Oxygen sat %: 98 %, HR: 74 /min, BP: 130/82 mm Hg, Wt: 201.9 lbs, BMI: 30.14 Index, Ht: 68.62 in. * Examination: G eneral Examination: GENERAL APPEARANCE: W ell developed, well nourished, in no acute distress. MUSCULOSKELETAL: N ormal. HEAD: N ormocephalic, atraumatic, . EYES: P upils equal, round, reactive to light and accommodation, sclera non-icteric. EARS: N ormal. ORAL CAVITY: N ormal. THROAT: C lear. OROPHARYNX N ormal. SINUSES N ormal. NECK/THYROID: N leobardo supple, full range of motion, no cervical lymphadenopathy. SKIN: W arm and dry, no suspicious lesions. HEART: S 1, S2 normal regular rate and rhythm no murmurs, rubs, gallops . LUNGS: c lear anteriorly and posteriorly good air movement no wheezes, rales, rhonchi . BREASTS: _ _. ABDOMEN: S oft, nontender, nondistended, bowel sounds present, . EXTREMITIES: 1 + pitting edema lower extremities . PERIPHERAL PULSES: N ormal. NEUROLOGIC: N onfocal, appropriate m otor strength normal upper and lower extremities, sensory exam intact. Psychiatry N ormal. FEMALE GENITOURINARY: _ _. MALE GENITOURINARY: _ _. PODIATRIC: N ormal. Patient Sitter _ ____. Assessment: * Assessment: 1. E ncounter for other preprocedural examination - Z01.818 (Primary) 2 . E ncounter for immunization - Z23 Mr. Pacheco is an 85-year-old g entleman with BOO, CAD, GERD, hypertension, lumbar radiculopathy and hemochromatosis here for preop physical for cataract surgery. Plan is as follows. Cardiac assessment. Patient can easily do 4 METS. Blood pressure and exam is within normal limits. Pulmonary assessment. Lung exam is normal And procedure under local block NPO on the day of surgery. Take blood pressure medication with a sip of water on the day of surgery Hold NSAIDs and aspirin 5 days before the procedure. Low risk procedure in a low risk patient. No contraindications for the procedure at this point in time Plan: * Treatment: * Immunizations: Fluzone High Dose 24907 : 0.5 mL (Dose No:1) (Route: Intramuscular) given by Julisa Dyer on Left Deltoid (Encounter for immunization) * Procedure Codes: 3 079F DIAST BP 80-89 MM [id number] SYST BP GE 130 - 139MM [id number] Flu vaccine no Preserv 3 and > * Follow Up: n ext appt * Images: * Sign off status: Completed true * Provider: Carolynn CARRERA MD Date: 09/22/2024 Generated for Blanka olivo/Surya/Karolitting on: 09/24/2024 06:41 PM EST History and Physical Notes * HPI (History of Present Illness) Category Sub-Category Detail Notes Category Not es Internal Medicine Mr. Pacheco is an 85-year-old gentleman with BOO, CAD, GERD, hypertension, lumbar radiculopathy and hemochromatosis here for preop physical for cataract surgery. Today he is in his usual state of health. He walks and exercises and does not complain of any exertional chest pain, pressure, shortness of breath. No systemic or constitutional symptoms. He complains of lower back pain and degenerative disc disease and he had intra-articular/intra-facet injections in the past and he also had nerve ablation in the past. He went to [facility] for nerve ablation with no significant results. He does not have or GI dysfunction. He goes to phlebotomy for his hemochromatosis on regular basis. He is physically active. He lost 10 lbs since last visit. Mood is stable on current regimen. He sleeps well, appetite is good. He denies any other active issues or concerns. Examination Category Sub-Category Detail Notes Category Not es General Examination GENERAL APPEARANCE: Well dev eloped, well nourished, in no acute distress HEAD: Normocephalic, atrau matic, EYES: Pupils equal, round, reactive to light and accommodation, sclera non-icteric EARS: Normal THROAT: Clear NECK/THYROID: Neck supple, full ra nge of motion, no cervical lymphadenopathy HEART: S1, S2 normal regula r rate and rhythm no murmurs, rubs, gallops LUNGS: clear anteriorly and posteriorly good air movement no wheezes, rales, rhonchi ABDOMEN: Soft, nontender, non distended, bowel sounds present, NEUROLOGIC: Nonfocal, appropriat e motor strength normal upper and lower extremities, sensory exam intact SKIN: Warm and dry, no shreya picious lesions EXTREMITIES: 1+ pitting edema low er extremities PERIPHERAL PULSES: Normal BREASTS: __ MUSCULOSKELETAL: Normal MALE GENITOURINARY: __ FEMALE GENITOURINARY: __ ORAL CAVITY: Normal PODIATRIC: Normal Psychiatry Normal OROPHARYNX Normal SINUSES Normal Patient Sitter
--- OUTSIDE RECORDS SUMMARY | 2025-07-25 18:41 | XMS_ITS | Clinical Summary ---
Author Organization [facility] Address [address] [place] [address] Care Team Providers Care Electronics Engineering Technologist Name Role Phone Edilson Ohara MD Primary Care Provider [phone] Allergies No known active allergies Medications Medication [...] nodule 01/11/2020 Coronary artery disease invo [place]ving [place] coronary artery of [place] heart without angina pectoris 01/11/2020 Gastro-esophageal reflux [...] age to complete this topic Care Teams Electronics Engineering Technologist Relationship Specialty Start Date End Date Edilson Ohara MD [address] [place] [address] PCP - General Internal Medicine 01/12/20
--- OUTSIDE RECORDS SUMMARY | 2025-07-25 18:41 | XMS_ITS | Clinical Summary ---
Author Organization [address] Address [address] [place] [phone] Phone Care Team Providers Care Cardroom Hand Name Role Phone Edilson Ohara MD Primary Care Provider [phone] Allergies No known active allergies Medications aspirin [...] nodules 01/10/2021 Coronary artery disease invo lving [place] coronary artery of [place] heart without angina pectoris 01/11/2020 Essential hypertension [...] Description 01/09/2026 11:00 AM EDT Office Visit [facility] Hematology Oncology [address] [place] [address] Jarvis Rodriguez MD [address] [place] [id number] Health Maintenance Due Date Last Done Comments DTaP,Tdap,and Td Vaccines (1 - Tdap) 1961 RSV Immunization Adult Patients (1 - 1-dose 75+ series) 2017 Cholesterol Screening (Lipid Panel) 08/14/2022 Falls Risk Assessment 08/14/2022 Medicare Annual Wellness Visit 08/14/2022 Social Influencers of Health Screening 08/14/2022 Depression Screening 09/06/2024 COVID-19 Vaccine ( season) 2025 07/23/2023, 07/16/2022, 12/26/2021, Additional history exists Hypertension/CHF/CAD Annual BMP Blood Test 12/14/2025 12/14/2024 Pneumococcal Vaccine: 50+ Years Completed 03/23/2024, 05/10/2015 Zoster Vaccines Completed 07/24/2024, 03/06, 06/03/2020, Additional history exists Influenza Vaccine Completed 07/23/2025, , 07/23/2023, Additional history exists HIB Vaccines Aged Out [...] Routine 12/14/2024 2:21 PM EDT Hereditary hemochromatosis ([facility] V24) from Last 3 Months or Most Recently Relevant to Health Maintenance Results * (ABNORMAL) Comprehensive metabolic panel (12/14/2024 2:21 PM EDT) Sodium 138 133 - 145 mmol/L LAB CHEMISTRY METHOD 12/14/2024 5:23 PM [facility] Potassium 4.3 3.5 - 5.5 mmol/L LAB CHEMISTRY METHOD 12/14/2024 5:23 PM [facility] Chloride 104 96 - 110 mmol/L LAB CHEMISTRY METHOD 12/14/2024 5:23 PM [facility] CO2 31 21 - 32 mmol/L LAB CHEMISTRY METHOD 12/14/2024 5:23 PM [facility] Anion Gap 3 3 - 11 LAB CHEMISTRY METHOD 12/14/2024 5:23 PM [facility] Glucose 115(H) 70 - 100 mg/dL LAB CHEMISTRY METHOD 12/14/2024 5:23 PM [facility] BUN 27(H) 5 - 25 mg/dL LAB CHEMISTRY METHOD 12/14/2024 5:23 PM [facility] Creatinine 1.14 0.70 - 1.30 mg/dL LAB CHEMISTRY METHOD 12/14/2024 5:23 PM [facility] eGFR 64 >=60 mL/min/1. 73m2 LAB CHEMISTRY METHOD 12/14/2024 5:23 PM [facility] Comment:Calculation based on the Chronic Kidney Disease Epidemiology Collaboration (CKD-EPI) equation refit without adjustment for race. BUN/Creatinine Ratio 23.7 LAB CHEMISTRY METHOD 12/14/2024 5:23 PM [facility] Calcium 8.9 8.5 - 10.5 mg/dL LAB CHEMISTRY METHOD 12/14/2024 5:23 PM [facility] AST (SGOT) 22 10 - 42 unit/L LAB CHEMISTRY METHOD 12/14/2024 5:23 PM [facility] ALT (SGPT) 34 10 - 60 unit/L LAB CHEMISTRY METHOD 12/14/2024 5:23 PM [facility] Alkaline Phosphatase 80 42 - 121 unit/L LAB CHEMISTRY METHOD 12/14/2024 5:23 PM [facility] Total Protein 6.7 6.0 - 8.0 g/dL LAB CHEMISTRY METHOD 12/14/2024 5:23 PM [facility] Albumin 3.7 3.2 - 5.0 g/dL LAB CHEMISTRY METHOD 12/14/2024 5:23 PM [facility] Total Bilirubin 0.6 0.0 - 1.4 mg/dL LAB CHEMISTRY METHOD 12/14/2024 5:23 PM [facility] Blood Venous blood specimen / Unknown Venipuncture / Unknown 12/14/2024 2:21 PM EDT 12/14/2024 2:21 PM EDT Jarvis Rodriguez MD LAB BLOOD ORDERABLE S Final Result [facility] ([facility]) [facility] [address] [place] [address], from Last 3 Months or Most Recently Relevant to Health Maintenance Insurance [employer] [place] MEDICARE ADVANTAGE Care Teams Cardroom Hand Relationship Specialty Start Date End Date Edilson Ohara MD [address] [place] [id number] PCP - General Internal Medicine 09/12/18
--- OUTSIDE RECORDS SUMMARY | 2025-07-25 18:41 | XMS_ITS | Patient Health Record ---
Author Organization [facility] Address [address] [place] [address] Care Team Providers Care Cardiology Consultant Name Role Phone DEANDRE MONTERROSO Primary Care Provider [phone] Allergies Allergen (clinical drug ingredient) Drug/Non Drug Allergy documented on EMR Reaction Allergy Type Onset Date Status escitalopram Lexapro Unknown Drug Allergy Acti ve paroxetine Paxil Unknown Drug Allergy Active sertraline Zoloft Unknown Drug Allergy Active Results Component Value Reference Range Notes Comp. Metabolic Panel [id number] Reviewed date:08/25/2024 08:24:45 AM Interpretation: Performing Lab:[facility], [address] [facility], [place], Phone - [phone], Director - Casa Notes/Report: Glucose 99 70-99 [...] IU/L ALT (SGPT) 27 0-44 IU/L Lipid Panel-[id number] Reviewed date:08/25/2024 08:24:48 AM Interpretation: Performing Lab:[facility] [place], [address] [facility], [place], Phone - [phone], Director - Casa Notes/Report: Cholesterol, Total 137 100-199 mg/dL Triglycerides 209 0-149 mg/dL HDL Cholesterol 35 >39 mg/dL VLDL Cholesterol Logan 35 5-40 mg/dL LDL Chol Calc ([facility]) 67 0-99 mg/dL CBC With Differential/Platel et-[id number] Reviewed date:08/25/2024 08:24:43 AM Interpretation: Performing Lab:[facility] [place], [address] [facility], [place], Phone - [phone], Director - Casa Notes/Report: WBC 5.3 3.4-10.8 [...] % Immature Grans (Abs) 0.0 0.0-0.1 x10E3/uL Ferritin-[id number] Reviewed date:08/25/2024 08:24:52 AM Interpretation: Performing Lab:[facility] [place], [address] [facility], [place], Phone - [phone], Director - Casa Notes/Report: Ferritin 343 30-400 ng/mL Iron-[id number] Reviewed date:08/25/2024 08:24:54 AM Interpretation: Performing Lab:[facility] [place], [address], [place], Phone - [phone], Director - Casa Notes/Report: Iron 205 38-169 ug/dL IRON AND TIBC Reviewed date:12/16/2024 12:27:18 AM [...] K/mcL Immature Granulocytes Absolute 0.02 0.00-0.03 K/mcL Reason For Referral No Information Medications Medication [...] Unknown 07/03/2022 Administered Flu Unknown 07/23/2023 Administered Fluzone High Dose 11092 IM Intramuscular 07/23/2025 Admini stered Influenza, high dose seasonal IM Intramuscular 06/12/2019 [...] W/U Status Risk Notes Problem Mixed hyperlipidemia (006132306) Mixed hyperlipidemia (E78.2) Active confirmed Problem Hemochromatosis (597923251) Hemochromatosis, unspecified (E83.119) Active confirmed Problem Generalized anxiety disorder (65974131) Generalized anxiety disorder (F41.1) Active confirmed Problem Cataract (disorder) (795921835) Cataract in diseases classified elsewhere (H28) Active confirmed Problem Hearing loss (66666609) Unspecified hearing loss, unspecified ear (H91.90) Active confirmed Problem 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) Active confirmed Problem Pain co-occurrent and due to varicose veins of bilateral legs (08087988780963047) Varicose veins of bilateral lower extremities with pain (I83.813) Active confirmed Problem Gastro-esophageal reflux disease without esophagitis (744951795) Gastro-esophageal reflux disease without esophagitis (K21.9) Active confirmed Problem Degeneration of thoracolumbar intervertebral disc (25557412) Other intervertebral disc degeneration, 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) Active confirmed Problem Lumbosacral radiculopathy (5393450) Radiculopathy, lumbosacral region (M54.17) Active confirmed Problem Solitary pulmonary nodule (656490465) Solitary pulmonary nodule (R91.1) Active confirmed Problem Adult health examination (497234414) Encounter for general adult medical examination without abnormal findings (Z00.00) Active confirmed Problem History of cataract extraction (367055063) Cataract extraction status, right eye (Z98.41) Active confirmed Problem Essential hypertension (37066279) Essential (primary) hypertension (I10) Active confirmed Problem Bradycardia (71150389) Bradycardia, unspecified (R00.1) Active confirmed Vital Signs Heart Rate 74 /min 07/23/2025 Temperature 96.9 degrees Fahrenheit 07/23/2025 Blood pressure diastolic 82 mm Hg 07/23/2025 Oximetry 98 % 07/23/2025 Height 68.62 in 07/23/2025 Blood pressure systolic 130 mm Hg 07/23/2025 Weight 201.9 lbs 07/23/2025 BMI 30.14 kg/m2 07/23/2025 Encounters Encounter Location Date Provider Diagnosis [address] [place] [address] 08/23/2024 KRISS CARRERA Essential (primary) hypertension I10 ; Mixed hyperlipidemia E78.2 ; Gastro-esophageal reflux disease without esophagitis K21.9 ; Atherosclerosis of coronary artery bypass graft(s) without angina pectoris I25.810 ; Generalized anxiety disorder F41.1 and Hemochromatosis, unspecified E83.[address] [place] [address] 11/14/2024 KRISS CARRERA Essential (primary) hypertension I10 ; Generalized anxiety disorder F41.1 ; Mixed hyperlipidemia E78.2 ; Gastro-esophageal reflux disease without esophagitis K21.9 ; Atherosclerosis of coronary artery bypass graft(s) without angina pectoris I25.810 and Hemochromatosis, unspecified E83.[address] [place] [address] 02/12/2025 KRISS CARRERA Generalized anxiety disorder F41.1 ; Essential (primary) hypertension I10 ; Mixed hyperlipidemia E78.2 ; Gastro-esophageal reflux disease without esophagitis K21.9 ; Atherosclerosis of coronary artery bypass graft(s) without angina pectoris I25.810 and Hemochromatosis, unspecified E83.[address] [place] [address] 05/16/2025 KRISS CARRERA Generalized anxiety disorder F41.1 ; Essential (primary) hypertension I10 ; Mixed hyperlipidemia E78.2 ; Gastro-esophageal reflux disease without esophagitis K21.9 ; Atherosclerosis of coronary artery bypass graft(s) without angina pectoris I25.810 ; Hemochromatosis, unspecified E83.119 and Other intervertebral disc degeneration, thoracolumbar region M51.35 [facility] [address] [place] [address] 07/23/2025 KRISS CARRERA Encounter for other preprocedural examination Z01.818 and Encounter for immunization Z23 [facility] [address] [place] [address] 08/21/2024 KRISS CARRERA Essential (primary) hypertension I10 ; Mixed hyperlipidemia E78.2 and Iron deficiency E61.1 [facility] [address] [place] [address] 07/17/2025 KRISS CARRERA [address] [place] [address] 07/23/2025 MONTERROSO GUL [address] [place] [address] 08/25/2024 KRISS CARRERA Assessments Encounter Date Diagnosis [...] he does not ask for early refills. Hypertension/hyperl ipidemia. Blood pressure well controlled on metoprolol 25 mg 1 tablet twice a day along with lisinopril 10 mg daily and he takes atorvastatin 40 mg 1 tablet daily at bedtime. Lipid panel before next appointment. Hemochromatosis. He follows up with senior mechanical engineer and have intermittent phlebotomies Coronary artery disease. [...] he does not ask for early refills. Hypertension/hyperl ipidemia. Blood pressure well controlled on metoprolol 25 mg 1 tablet twice a day along with lisinopril 10 mg daily and he takes atorvastatin 40 mg 1 tablet daily at bedtime. Lipid panel before next appointment. Hemochromatosis. He follows up with senior mechanical engineer and have intermittent phlebotomies Coronary artery disease. He is stable and he is on the right medications. Constipation. Advised to use ulsc-iei-vlugvss psyllium husk or Colace tablets and appropriate [...] he does not ask for early refills. Hypertension/hyperl ipidemia. Blood pressure well controlled on metoprolol 25 mg 1 tablet twice a day along with lisinopril 10 mg daily and he takes atorvastatin 40 mg 1 tablet daily at bedtime. Lipid panel before next appointment. Hemochromatosis. He follows up with senior mechanical engineer and have intermittent phlebotomies Coronary artery disease. He is stable and he is on the right medications. Constipation. Advised to use nzxq-qpu-xlyytck psyllium husk or Colace tablets and appropriate [...] he does not ask for early refills. Hypertension/hyperl ipidemia. Blood pressure well controlled on metoprolol 25 mg 1 tablet twice a day along with lisinopril 10 mg daily and he takes atorvastatin 40 mg 1 tablet daily at bedtime. Lipid panel before next appointment. Hemochromatosis. He follows up with senior mechanical engineer and have intermittent phlebotomies Coronary artery disease. He is stable and he is on the right medications. Venous insufficiency. Advised low-sodium diet, keep legs elevated and use compression stockings. He is not interested in Lasix. Constipation. Advised to use wemd-qbe-pimswwq psyllium husk or Colace tablets and appropriate [...] he does not ask for early refills. Hypertension/hyperl ipidemia. Blood pressure well controlled on metoprolol 25 mg 1 tablet twice a day along with lisinopril 10 mg daily and he takes atorvastatin 40 mg 1 tablet daily at bedtime. Lipid panel before next appointment. Hemochromatosis. He follows up with senior mechanical engineer and have intermittent phlebotomies Coronary artery disease. He is stable and he is on the right medications. Venous insufficiency. Advised low-sodium diet, keep legs elevated and use compression stockings. He is not interested in Lasix. Constipation. Advised to use nccr-ksl-vqwzdir psyllium husk or Colace tablets and appropriate hydration.He can also use Gas-X Screening blood work before next appointment 05/16/2025 Generalized anxiety disorder (ICD-10 - F41.1) Ehsan [...] he does not ask for early refills. Hypertension/hyperl ipidemia. Blood pressure well controlled on metoprolol 25 mg 1 tablet twice a day along with lisinopril 10 mg daily and he takes atorvastatin 40 mg 1 tablet daily at bedtime. Lipid panel before next appointment. Hemochromatosis. He follows up with senior mechanical engineer and have intermittent phlebotomies Coronary artery disease. He is stable and he is on the right medications. Venous insufficiency. Advised low-sodium diet, keep legs elevated and use compression stockings. Degenerative disc disease. We discussed that he should look up another provider who can do a nerve ablation given if that provider is out of network. He will contact his insurance. Meanwhile he can continue regular stretching and exercises and tries to lose weight. Screening blood work before next appointment 05/16/2025 Essential (primary) hypertension (ICD-10 - I10) Ehsan [...] he does not ask for early refills. Hypertension/hyperl ipidemia. Blood pressure well controlled on metoprolol 25 mg 1 tablet twice a day along with lisinopril 10 mg daily and he takes atorvastatin 40 mg 1 tablet daily at bedtime. Lipid panel before next appointment. Hemochromatosis. He follows up with senior mechanical engineer and have intermittent phlebotomies Coronary artery disease. He is stable and he is on the right medications. Venous insufficiency. Advised low-sodium diet, keep legs elevated and use compression stockings. Degenerative disc disease. We discussed that he should look up another provider who can do a nerve ablation given if that provider is out of network. He will contact his insurance. Meanwhile he can continue regular stretching and exercises and tries to lose weight. Screening blood work before next appointment 07/23/2025 Encounter for other preprocedural examination (ICD-10 [...] the procedure at this point in time 05/16/2025 Mixed hyperlipidemia (ICD-10 - E78.2) Ehsan is [...] he does not ask for early refills. Hypertension/hyperl ipidemia. Blood pressure well controlled on metoprolol 25 mg 1 tablet twice a day along with lisinopril 10 mg daily and he takes atorvastatin 40 mg 1 tablet daily at bedtime. Lipid panel before next appointment. Hemochromatosis. He follows up with senior mechanical engineer and have intermittent phlebotomies Coronary artery disease. He is stable and he is on the right medications. Venous insufficiency. Advised low-sodium diet, keep legs elevated and use compression stockings. Degenerative disc disease. We discussed that he should look up another provider who can do a nerve ablation given if that provider is out of network. He will contact his insurance. Meanwhile he can continue regular stretching and exercises and tries to lose weight. Screening blood work before next appointment 02/12/2025 Mixed hyperlipidemia (ICD-10 - E78.2) Ehsan [...] he does not ask for early refills. Hypertension/hyperl ipidemia. Blood pressure well controlled on metoprolol 25 mg 1 tablet twice a day along with lisinopril 10 mg daily and he takes atorvastatin 40 mg 1 tablet daily at bedtime. Lipid panel before next appointment. Hemochromatosis. He follows up with senior mechanical engineer and have intermittent phlebotomies Coronary artery disease. He is stable and he is on the right medications. Venous insufficiency. Advised low-sodium diet, keep legs elevated and use compression stockings. He is not interested in Lasix. Constipation. Advised to use cete-pgl-hrnytsr psyllium husk or Colace tablets and appropriate [...] he does not ask for early refills. Hypertension/hyperl ipidemia. Blood pressure well controlled on metoprolol 25 mg 1 tablet twice a day along with lisinopril 10 mg daily and he takes atorvastatin 40 mg 1 tablet daily at bedtime. Lipid panel before next appointment. Hemochromatosis. He follows up with senior mechanical engineer and have intermittent phlebotomies Coronary artery disease. He is stable and he is on the right medications. Constipation. Advised to use rutm-hpt-ekdxajm psyllium husk or Colace tablets and appropriate [...] he does not ask for early refills. Hypertension/hyperl ipidemia. Blood pressure well controlled on metoprolol 25 mg 1 tablet twice a day along with lisinopril 10 mg daily and he takes atorvastatin 40 mg 1 tablet daily at bedtime. Lipid panel before next appointment. Hemochromatosis. He follows up with senior mechanical engineer and have intermittent phlebotomies Coronary artery disease. He is stable and he is on the right medications. Screening blood work before next appointment 08/21/2024 Mixed hyperlipidemia (ICD-10 - E78.2) 08/21/2024 Iron deficiency (ICD-10 - E61.1) 08/23/2024 [...] he does not ask for early refills. Hypertension/hyperl ipidemia. Blood pressure well controlled on metoprolol 25 mg 1 tablet twice a day along with lisinopril 10 mg daily and he takes atorvastatin 40 mg 1 tablet daily at bedtime. Lipid panel before next appointment. Hemochromatosis. He follows up with senior mechanical engineer and have intermittent phlebotomies Coronary artery disease. [...] he does not ask for early refills. Hypertension/hyperl ipidemia. Blood pressure well controlled on metoprolol 25 mg 1 tablet twice a day along with lisinopril 10 mg daily and he takes atorvastatin 40 mg 1 tablet daily at bedtime. Lipid panel before next appointment. Hemochromatosis. He follows up with senior mechanical engineer and have intermittent phlebotomies Coronary artery disease. He is stable and he is on the right medications. Constipation. Advised to use germ-gvz-hthjyma psyllium husk or Colace tablets and appropriate hydration. Screening blood work before next appointment 05/16/2025 Gastro-esophageal reflux disease without esophagitis (ICD-10 - [...] he does not ask for early refills. Hypertension/hyperl ipidemia. Blood pressure well controlled on metoprolol 25 mg 1 tablet twice a day along with lisinopril 10 mg daily and he takes atorvastatin 40 mg 1 tablet daily at bedtime. Lipid panel before next appointment. Hemochromatosis. He follows up with senior mechanical engineer and have intermittent phlebotomies Coronary artery disease. He is stable and he is on the right medications. Venous insufficiency. Advised low-sodium diet, keep legs elevated and use compression stockings. Degenerative disc disease. We discussed that he should look up another provider who can do a nerve ablation given if that provider is out of network. He will contact his insurance. Meanwhile he can continue regular stretching and exercises and tries to lose weight. Screening blood work before next appointment 02/12/2025 [...] he does not ask for early refills. Hypertension/hyperl ipidemia. Blood pressure well controlled on metoprolol 25 mg 1 tablet twice a day along with lisinopril 10 mg daily and he takes atorvastatin 40 mg 1 tablet daily at bedtime. Lipid panel before next appointment. Hemochromatosis. He follows up with senior mechanical engineer and have intermittent phlebotomies Coronary artery disease. He is stable and he is on the right medications. Venous insufficiency. Advised low-sodium diet, keep legs elevated and use compression stockings. He is not interested in Lasix. Constipation. Advised to use rovw-okb-ngzzbfw psyllium husk or Colace tablets and appropriate hydration.He can also use Gas-X Screening blood work before next appointment 05/16/2025 Atherosclerosis of coronary artery bypass graft(s) without [...] he does not ask for early refills. Hypertension/hyperl ipidemia. Blood pressure well controlled on metoprolol 25 mg 1 tablet twice a day along with lisinopril 10 mg daily and he takes atorvastatin 40 mg 1 tablet daily at bedtime. Lipid panel before next appointment. Hemochromatosis. He follows up with senior mechanical engineer and have intermittent phlebotomies Coronary artery disease. He is stable and he is on the right medications. Venous insufficiency. Advised low-sodium diet, keep legs elevated and use compression stockings. Degenerative disc disease. We discussed that he should look up another provider who can do a nerve ablation given if that provider is out of network. He will contact his insurance. Meanwhile he can continue regular stretching and exercises and tries to lose weight. Screening blood work before next appointment 02/12/2025 [...] he does not ask for early refills. Hypertension/hyperl ipidemia. Blood pressure well controlled on metoprolol 25 mg 1 tablet twice a day along with lisinopril 10 mg daily and he takes atorvastatin 40 mg 1 tablet daily at bedtime. Lipid panel before next appointment. Hemochromatosis. He follows up with senior mechanical engineer and have intermittent phlebotomies Coronary artery disease. He is stable and he is on the right medications. Venous insufficiency. Advised low-sodium diet, keep legs elevated and use compression stockings. He is not interested in Lasix. Constipation. Advised to use mgzu-yqr-nbevqei psyllium husk or Colace tablets and appropriate [...] he does not ask for early refills. Hypertension/hyperl ipidemia. Blood pressure well controlled on metoprolol 25 mg 1 tablet twice a day along with lisinopril 10 mg daily and he takes atorvastatin 40 mg 1 tablet daily at bedtime. Lipid panel before next appointment. Hemochromatosis. He follows up with senior mechanical engineer and have intermittent phlebotomies Coronary artery disease. He is stable and he is on the right medications. Constipation. Advised to use ipzh-lsk-hbabdaa psyllium husk or Colace tablets and appropriate [...] he does not ask for early refills. Hypertension/hyperl ipidemia. Blood pressure well controlled on metoprolol 25 mg 1 tablet twice a day along with lisinopril 10 mg daily and he takes atorvastatin 40 mg 1 tablet daily at bedtime. Lipid panel before next appointment. Hemochromatosis. He follows up with senior mechanical engineer and have intermittent phlebotomies Coronary artery disease. [...] he does not ask for early refills. Hypertension/hyperl ipidemia. Blood pressure well controlled on metoprolol 25 mg 1 tablet twice a day along with lisinopril 10 mg daily and he takes atorvastatin 40 mg 1 tablet daily at bedtime. Lipid panel before next appointment. Hemochromatosis. He follows up with senior mechanical engineer and have intermittent phlebotomies Coronary artery disease. [...] he does not ask for early refills. Hypertension/hyperl ipidemia. Blood pressure well controlled on metoprolol 25 mg 1 tablet twice a day along with lisinopril 10 mg daily and he takes atorvastatin 40 mg 1 tablet daily at bedtime. Lipid panel before next appointment. Hemochromatosis. He follows up with senior mechanical engineer and have intermittent phlebotomies Coronary artery disease. He is stable and he is on the right medications. Constipation. Advised to use jaiu-syq-lctmdgo psyllium husk or Colace tablets and appropriate [...] he does not ask for early refills. Hypertension/hyperl ipidemia. Blood pressure well controlled on metoprolol 25 mg 1 tablet twice a day along with lisinopril 10 mg daily and he takes atorvastatin 40 mg 1 tablet daily at bedtime. Lipid panel before next appointment. Hemochromatosis. He follows up with senior mechanical engineer and have intermittent phlebotomies Coronary artery disease. He is stable and he is on the right medications. Venous insufficiency. Advised low-sodium diet, keep legs elevated and use compression stockings. He is not interested in Lasix. Constipation. Advised to use qcfb-eul-kvvaixf psyllium husk or Colace tablets and appropriate hydration.He can also use Gas-X Screening blood work before next appointment 05/16/2025 Hemochromatosis, unspecified (ICD-10 - E83.119) Ehsan is [...] he does not ask for early refills. Hypertension/hyperl ipidemia. Blood pressure well controlled on metoprolol 25 mg 1 tablet twice a day along with lisinopril 10 mg daily and he takes atorvastatin 40 mg 1 tablet daily at bedtime. Lipid panel before next appointment. Hemochromatosis. He follows up with senior mechanical engineer and have intermittent phlebotomies Coronary artery disease. He is stable and he is on the right medications. Venous insufficiency. Advised low-sodium diet, keep legs elevated and use compression stockings. Degenerative disc disease. We discussed that he should look up another provider who can do a nerve ablation given if that provider is out of network. He will contact his insurance. Meanwhile he can continue regular stretching and exercises and tries to lose weight. Screening blood work before next appointment 05/16/2025 Other intervertebral disc degeneration, thoracolumbar region (ICD-10 - M51.35) Ehsan is 85 years old gentleman with hypertension, hyperlipidemia, generalized anxiety disorder, hemochromatosis, coronary artery disease, degenerative disc disease is here for follow-up.He also complained of flatulence and pedal edema. Plan is as follows Generalized anxiety disorder. He is on diazepam 5 mg and he has a controlled substance contract. No apparent behavior and he does not ask for early refills. Hypertension/hyperl ipidemia. Blood pressure well controlled on metoprolol 25 mg 1 tablet twice a day along with lisinopril 10 mg daily and he takes atorvastatin 40 mg 1 tablet daily at bedtime. Lipid panel before next appointment. Hemochromatosis. He follows up with senior mechanical engineer and have intermittent phlebotomies Coronary artery disease. He is stable and he is on the right medications. Venous insufficiency. Advised low-sodium diet, keep legs elevated and use compression stockings. Degenerative disc disease. We discussed that he should look up another provider who can do a nerve ablation given if that provider is out of network. He will contact his insurance. Meanwhile he can continue regular stretching and exercises and tries to lose weight. Screening blood work before next appointment 08/23/2024 [...] he does not ask for early refills. Hypertension/hyperl ipidemia. Blood pressure well controlled on metoprolol 25 mg 1 tablet twice a day along with lisinopril 10 mg daily and he takes atorvastatin 40 mg 1 tablet daily at bedtime. Lipid panel before next appointment. Hemochromatosis. He follows up with senior mechanical engineer and have intermittent phlebotomies Coronary artery disease. He is stable and he is on the right medications. Screening blood work before next appointment Plan Of Treatment Pending Test Test Name Order Date Ultrasound : Doppler : Veins Leg Left CBC (COMPLETE BLOOD COUNT) 05/21/2022 FERRITIN 05/21/2022 IRON & TIBC 05/21/2022 Albumin/Creatinine Ratio,[id number] Future Test Test Name Order Date CBC With Differential/Platelet-[id number] Albumin/Creatinine Ratio,[id number] Lipid Panel-[id number] 08/23/2024 Comp. Metabolic Panel [id number] 2023 Albumin/Creatinine Ratio,[id number] Lipid Panel-[id number] 05/16/2025 Comp. Metabolic Panel [id number] 2024 Next Appt Details Provider Name:MONTERROSO A GUL , 10/15/2025 11:00:00 AM, [address] [place] [address], [phone], Insurance Providers Payer Name Payer Address Payer Phone Subscriber Number Group Number Insured Name Patient Relationship to Insured Coverage Start Date Coverage End Date [facility] [address] [place] [phone] [id number] Ehsan Pacheco Self - patient is the insured Medical (General) History Medical History History ICD Code Anxiety disorder, unspecified F41.9 Atherosclerotic heart diseas e of [place] coronary artery without angina pectoris I25.10 Benign prostatic hyperplasia without low er urinary tract symptoms N40.0 Diverticulosis of intestine, part unspecified, without perforation or abscess without bleeding K57.90 Hyperlipidemia, unspecified E78.5 Other mcc (current) drug therapy Z 79.899 Gastro-esophageal reflux disease without esophagitis K21.9 Personal history of other benign neoplas m Z86.018 Essential (primary) hypertension I10 Bilateral hearing loss and uses hearing aids Hereditary hemochromatosis, 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
== END 2025-07-25 09:58 | disposition home or self-care (01) ==
LOC: HO.BBR 09:57
PROVIDERS: PCP Hospitalist; Visit Provider Internal Medicine
DX: Z13.89 Encounter for screening for other disorder (principal)